=== PATIENT | female | born 1990 | race Caucasian/White ===

== ENCOUNTER 2018-10-31 01:33 | Emergency (ER) | payer MEDICAID ==
[2018-10-31] MEDS ORDERED: Acetaminophen/Butalbital/Caffeine 325-50-40 MG Tab PO ONE (02:50)
--- NOTE | 2018-10-31 02:53 | EDM.PDOC ---
ED HPI GENERAL MEDICAL PROBLEM - General Chief Complaint: Respiratory Problem Stated Complaint: SOB CONGESTION DUE TO ASTHMA Time Seen by Provider: 10/31/18 01:54 Source of Information: Reports: Patient, RN Notes Reviewed, Significant Other ( Boyfriend) History Limitations: Reports: No Limitations - History of Present Illness INITIAL COMMENTS - FREE TEXT/NARRATIVE: The patient states that she was in a swimming pool that seemed like it had too much chlorine, on 10/23/2018. She states that she has had URI symptoms , including nasal congestion, rhinorrhea, postnasal drip with a scratchy throat , since 10/23/2018. She states that she then moved here from [place], [place] 5 days ago. She states that she has been experiencing an asthma exacerbation, including shortness of breath, a cough sometimes productive of clear sputum, and slight wheezing, ever since she had been in the swimming pool. No recent fever. She has taken both DayQuil and NyQuil, without relief of her symptoms. She has not taken any other medications, including her albuterol, which she has by both MDI and nebulizer, because she forgot all of her medications in [place]. The patient has never been evaluated by a [facility], and has never undergone pulmonary function tests. She states that she was given a presumptive diagnosis of asthma at 18 years of age. The patient does not have a spacer chamber or peak flow meter. When asked to demonstrate how she would use her albuterol MDI, she shook her hand for only a few seconds, and her inhalation technique was poor. The patient acknowledges that she continues to smoke one pack of cigarettes per day, down from 2 packs of cigarettes per day, ever since she was 21 years old. The patient also reports that she gets headaches 3-4 times a week, and that she takes Fioricet up to 4 times a day for them. She states that she was diagnosed with migraines per a Neurologist around 2014, however, she states that she has never been on an antimigraine medication, such as a triptan, which she cannot explain. She is requesting a refill of her Fioricet. The patient's PCP was Isha Bailey NP, in [place]. Her Psychiatrist is Dr. Fish Winters, also from [place]. Headache Pain Score (Numeric/FACES): 8 - Related Data Allergies Allergy/AdvReac Type Severity Reaction Status Date / Time No Known Allergies Allergy Verified 10/31/18 01:44 Home Meds: Home Meds Acetaminophen/Butalbital/Caff [Fioricet 325-50-40 MG] 1 tab PO Q12H PRN #6 tablet 10/31/18 [Rx] Acetaminophen/Butalbital/Caff [Fioricet 325-50-40 MG] 1 tab PO Q12H PRN #6 tablet 10/31/18 [Rx] Albuterol Sulfate [Albuterol Sulfate Hfa] 1 - 2 inh IH Q4H PRN #1 hfa.aer.ad 07/20 [Rx] Albuterol Sulfate [Albuterol Sulfate Hfa] 1 - 2 inh INH Q4H PRN #1 hfa.aer.ad [Rx] Past Medical History 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: Reports: Asthma (suspected, not tested) Neurological History: Reports: Headaches, Chronic Psychiatric History: Reports: Anxiety (untreated), Bipolar (untreated), Depression (untreated) Endocrine/Metabolic History: Reports: Obesity/BMI 30+ - Past Surgical History HEENT Surgical History: Reports: Adenoidectomy, Oral Surgery (wisdom teeth extraction), Tonsillectomy Female Surgical History: Reports: D&C (x 1), Tubal Ligation Endocrine Surgical History: Reports: Thyroidectomy (partial) Social & Family History - Tobacco Use Smoking Status *Q: Current Every Day Smoker Years of Tobacco use: 7 Packs/Tins Daily: 1 Packs/Tins Daily Comment: Down from 2 ppd - Caffeine Use Caffeine Use: Reports: Energy Drinks, Soda - Alcohol Use Alcohol Use History: Yes Date/Time of Last Drink Comment: None since Mar 2018 - Recreational Drug Use Recreational Drug Use: No Recreational Drug Type: Reports: Marijuana/Hashish (last smoked May 2017), Methamphetamine (last smoked May 2017) - Living Situation & Occupation Living situation: Reports: , with Significant Other (Boyfriend), with Family (Daughter) Occupation: Unemployed ED ROS GENERAL - Review of Systems Review Of Systems: ROS reveals no pertinent complaints other than HPI. ED EXAM, GENERAL - Physical Exam Exam: See Below Exam Limited By: No Limitations General Appearance: Alert, WD/WN, No Apparent Distress Eye Exam: Bilateral Eye: EOMI, Normal Inspection Ears: Normal External Exam, Normal Canal, Hearing Grossly Normal, Normal TMs Nose: Normal Inspection, Other (Mild bilateral nasal mucosa edema) Throat/Mouth: Normal Inspection, Normal Lips, Normal Teeth, Normal Gums, Normal Voice, No Airway Compromise, Other (Posterior oropharyngeal streaking, consistent with post nasal drip) Head: Atraumatic, Normocephalic Neck: Normal Inspection, Supple, Non-Tender, Full Range of Motion. No: Lymphadenopathy (L), Lymphadenopathy (R) Respiratory/Chest: No Respiratory Distress, Lungs Clear, Normal Breath Sounds, No Accessory Muscle Use. No: Decreased Breath Sounds, Crackles, Rhonchi, Wheezing, Prolonged Expiration Cardiovascular: Normal Peripheral Pulses, Regular Rate, Rhythm, No Gallop, No JVD, No Murmur, No Rub Peripheral Pulses: 4+: Radial (L), Radial (R) GI/Abdominal: Normal Bowel Sounds, Soft, Non-Tender, No Organomegaly, No Distention, No Abnormal Bruit, No Mass, Other (Obese) (Female) Exam: Deferred Rectal (Female) Exam: Deferred Back Exam: Normal Inspection, Full Range of Motion, NT Extremities: Normal Inspection, Normal Range of Motion, No Pedal Edema, Normal Capillary Refill Neurological: Alert, Oriented, Normal Cognition, No Motor/Sensory Deficits Psychiatric: Normal Affect Skin Exam: Warm, Dry, Intact, Normal Color, No Rash Course - Vital Signs Last Recorded V/S: Last Vital Signs Temp 36.4 C 10/31/18 01:38 Pulse 102 H 10/31/18 01:38 Resp 16 10/31/18 01:38 BP 145/102 H 10/31/18 01:38 Pulse Ox 97 10/31/18 01:38 - Orders/Labs/Meds Meds: Medications Discontinued Medications Generic Name Dose Route Start Last Admin Trade Name Freq PRN Reason Stop Dose Admin Acetaminophen/Butalbital/Caffeine 1 tab 10/31/18 02:50 10/31/18 02:58 Fioricet 325-50-40 Mg PO 10/31/18 02:51 1 tab ONETIME ONE Administration - Re-Assessments/Exams Free Text/Narrative Re-Assessment/Exam: 10/31/18 02:48 While the patient may feel some shortness of breath, and she has an occasional cough, I hear no expiratory wheezing, there is good air movement, and no prolonged expiratory phase, therefore I don't believe what she is currently experiencing is an asthma exacerbation. I believe, rather, that her cough is due to a viral URI with postnasal drip. It is possible that she has allergic rhinitis, however, she denies that these symptoms occur seasonally. For today's purposes, then, I don't see an indication for any specific treatment, and I advised that she not take any [id number] cough or cold remedies, as they have been shown to be of no use. The patient is going to be provided, however, with a space chamber and a peak flow meter, with instructions on their proper use, and I will prescribe an albuterol MDI that she can fill later today. I am recommending that she follow-up in our clinic, where diagnostic PFTs can be arranged. With respect to the patient's headache, it does not sound like they are migrainous in etiology. She is likely suffering from chronic daily headaches, which may be related to her chronic use of Fioricet. For today's purposes, she will receive a single dose of Fioricet, and I will prescribe a small quantity, however, I would like her to follow-up in our clinic for further evaluation and any future prescriptions she might need. The patient is agreeable. Departure - Departure Time of Disposition: 02:53 Disposition: Home, Self-Care 01 Condition: Good Clinical Impression: Viral URI with cough, Chronic headaches - Discharge Information *PRESCRIPTION DRUG MONITORING PROGRAM REVIEWED*: Not Applicable *COPY OF PRESCRIPTION DRUG MONITORING REPORT IN PATIENT NIKIA: Not Applicable Prescriptions: Acetaminophen/Butalbital/Caff [Fioricet 325-50-40 MG] 1 tab PO Q12H PRN #6 tablet PRN Reason: Headache Acetaminophen/Butalbital/Caff [Fioricet 325-50-40 MG] 1 tab PO Q12H PRN #6 tablet PRN Reason: Headache Albuterol Sulfate [Albuterol Sulfate Hfa] 1 - 2 inh IH Q4H PRN #1 hfa.aer.ad PRN Reason: Wheezing Albuterol Sulfate [Albuterol Sulfate Hfa] 1 - 2 inh INH Q4H PRN #1 hfa.aer.ad PRN Reason: Wheezing Instructions: Migraine Headache, [id number], Upper Respiratory Infection, Adult, [id number] Referrals: Anali Redmond MD [Physician] - Forms: ED Department Discharge Additional Instructions: You were seen in the emergency room for shortness of breath and a cough, along with a headache. On evaluation in the ER, your shortness of breath and cough do not appear to be due to an asthma exacerbation. That does not mean that you don't have asthma, but at this time, your symptoms are more likely due to a viral URI (common cold ) with postnasal drip. As discussed, we do not recommend that you take any plgw-hdy-cdlqddh cough or cold remedies, as they have been shown to be of no benefit, but do have side effects, such as an upset stomach. You were provided a space chamber and a peak flow meter in the ER. You were prescribed an albuterol MDI and some Fioricet. Learn how to use the peak flow meter, and check your peak flow twice a week. If it is in the yellow or red zone, even if you are feeling fine, you should contact your doctor, as this may mean an impending asthma exacerbation. If you are having shortness of breath and wheezing, with or without a cough, and your peak flow is in the yellow or red zone, take 1-2 puffs of albuterol as needed. Always use the space chamber. You may repeat the albuterol as often as needed, however, if you need to use it more often than every 4 hours, you need to be seen by a doctor. If you are having shortness of breath and your peak flow is in the green zone, do not take albuterol. Follow-up with Dr. Anali Redmond, or one of the other providers in the clinic, in order to: 1. Establish a primary care provider. 2. Discuss the option of referral to a [facility] for pulmonary function tests, to definitively diagnose whether or not you have asthma, and craft an ideal treatment. 3. Discuss your chronic headaches. By history, they are not due to migraines. You may need to be reevaluated by a Neurologist. 4. Discuss whether or not you may benefit by restarting on antidepressant medication. If any other problems, please do not hesitate to return to the ER.
== END 2018-10-31 03:25 | disposition home or self-care (01) ==
LOC: JD.ED 01:33
DX: J06.9 Acute upper respiratory infection, unspecified (principal); R51 Headache; F41.9 Anxiety disorder, unspecified; F17.210 Nicotine dependence, cigarettes, uncomplicated; F31.9 Bipolar disorder, unspecified; Z79.899 Other long term (current) drug therapy
CPT/HCPCS: 99284; A9270

== ENCOUNTER 2019-02-13 20:14 | Emergency (ER) | payer MEDICAID ==
--- NOTE | 2019-02-13 20:57 | EDM.PDOC ---
ED HPI GENERAL MEDICAL PROBLEM - General Chief Complaint: Asthma Stated Complaint: COUGH SHORT OF BREATH Time Seen by Provider: 02/13/19 20:52 - History of Present Illness INITIAL COMMENTS - FREE TEXT/NARRATIVE: 28-year-old female presents emergency room with breathing difficulties. Patient' s long-standing history of asthma. This started about 3 or 4 days ago but today was much much worse. Patient uses albuterol at home and she's been using this every couple of hours. She is not aware of any fevers or chills she has not had any upper airway symptoms. No nausea no vomiting no gastrointestinal symptoms no other symptoms altogether. Treatments LIFE SPECIALIST: Reports: Other (see below) Other Treatments LIFE SPECIALIST: albuteral inhaler - Related Data Allergies Allergy/AdvReac Type Severity Reaction Status Date / Time No Known Allergies Allergy Verified 10/31/18 01:44 Home Meds: Home Meds Acetaminophen/Butalbital/Caff [Fioricet 325-50-40 MG] 1 tab PO Q12H PRN #6 tablet 10/31/18 [Rx] Albuterol Sulfate [Albuterol Sulfate Hfa] 1 - 2 inh INH Q4H PRN #1 hfa.aer.ad [Rx] ALPRAZolam [Xanax] 1 mg PO BID 02/13/19 [History] Fluticasone Propionate [Flovent] 1 puff IH BID #1 disk.w.dev 02/13/19 [Rx] Zolpidem Tartrate [Ambien] 5 mg PO BEDTIME 02/13/19 [History] predniSONE 60 mg PO WITHBREAKFAST #12 tab 02/13/19 [Rx] Past Medical History 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: Reports: Asthma Neurological History: Reports: Headaches, Chronic Psychiatric History: Reports: Anxiety, Bipolar, Depression Endocrine/Metabolic History: Reports: Obesity/BMI 30+ - Past Surgical History HEENT Surgical History: Reports: Adenoidectomy, Oral Surgery, Tonsillectomy Female Surgical History: Reports: D&C, Tubal Ligation Endocrine Surgical History: Reports: Thyroidectomy Social & Family History - Tobacco Use Smoking Status *Q: Current Every Day Smoker Years of Tobacco use: 6 Packs/Tins Daily: 1 - Caffeine Use Caffeine Use: Reports: Soda - Recreational Drug Use Recreational Drug Use: No - Living Situation & Occupation Living situation: Reports: , with Significant Other (Boyfriend), with Family (Daughter) Occupation: Unemployed ED ROS GENERAL - Review of Systems Review Of Systems: See Below Constitutional: Reports: No Symptoms HEENT: Reports: No Symptoms Respiratory: Reports: Wheezing, Cough. Denies: Pleuritic Chest Pain, Sputum, Hemoptysis Cardiovascular: Reports: No Symptoms Endocrine: Reports: No Symptoms GI/Abdominal: Reports: No Symptoms : Reports: No Symptoms Musculoskeletal: Reports: No Symptoms Skin: Reports: No Symptoms Neurological: Reports: No Symptoms Psychiatric: Reports: No Symptoms Hematologic/Lymphatic: Reports: No Symptoms Immunologic: Reports: No Symptoms ED EXAM, GENERAL - Physical Exam Exam: See Below Exam Limited By: No Limitations General Appearance: Alert, No Apparent Distress Eye Exam: Bilateral Eye: Normal Inspection Ears: Normal External Exam Nose: Normal Inspection, Normal Mucosa, No Blood Throat/Mouth: Normal Inspection, Normal Lips, Normal Teeth, Normal Gums, Normal Oropharynx, Normal Voice, No Airway Compromise Head: Atraumatic, Normocephalic Neck: Normal Inspection, Supple, Non-Tender, Full Range of Motion Respiratory/Chest: No Respiratory Distress, Decreased Breath Sounds, Other (She has some coarse breath sounds a few end expiratory wheezes she sounds really clear after nebulizer treatment) Cardiovascular: Normal Peripheral Pulses, Regular Rate, Rhythm, No Edema Course - Vital Signs Last Recorded V/S: Last Vital Signs Temp 36.9 C 02/13/19 20:37 Pulse 100 02/13/19 20:37 Resp 20 02/13/19 20:37 BP 126/90 02/13/19 20:37 Pulse Ox 96 02/13/19 21:18 - Orders/Labs/Meds Orders: Active Orders 24 hr Category Date Time Status RT Aerosol Therapy [RC] ASDIRECTED Care 02/13/19 21:09 Active Chest 2V [CR] Stat Exams 02/13/19 21:03 Taken Meds: Medications Discontinued Medications Generic Name Dose Route Start Last Admin Trade Name Freq PRN Reason Stop Dose Admin Albuterol/Ipratropium 3 ml 02/13/19 21:09 02/13/19 21:18 Duoneb 3.0-0.5 Mg/3 Ml NEB 02/13/19 21:10 3 ml ONETIME ONE Administration Prednisone 60 mg 02/13/19 21:03 02/13/19 21:29 Prednisone PO 02/13/19 21:04 60 mg ONETIME ONE Administration - Re-Assessments/Exams Free Text/Narrative Re-Assessment/Exam: 02/13/19 22:33 Chest x-ray looks unremarkable she had a big improvement with her nebulizer treatment. She's received 60 mg of prednisone and she really wants to go home we will discharge her home Departure - Departure Time of Disposition: 22:34 Disposition: Home, Self-Care 01 Clinical Impression: History of asthma, Acute bronchitis - Discharge Information Prescriptions: Fluticasone Propionate [Flovent] 1 puff IH BID #1 disk.w.dev predniSONE 60 mg PO WITHBREAKFAST #12 tab Referrals: Neva Chapman PA-C [Primary Care Provider] - Forms: ED Department Discharge - My Orders Last 24 Hours: My Active Orders 02/13/19 21:03 Chest 2V [CR] Stat 02/13/19 21:09 RT Aerosol Therapy [RC] ASDIRECTED - Assessment/Plan Last 24 Hours: My Active Orders 02/13/19 21:03 Chest 2V [CR] Stat 02/13/19 21:09 RT Aerosol Therapy [RC] ASDIRECTED
[2019-02-13] MEDS ORDERED: predniSONE 10 MG Tab PO ONE (21:03)
[2019-02-13] MEDS ORDERED: Albuterol/Ipratropium 3.0-0.5 MG/3 ML Neb Soln NEB ONE (21:09)
--- NOTE | 2019-02-15 09:42 | CR ---
Chest: Two views of the chest were obtained. Comparison: No prior chest x-ray. Heart size and mediastinum are normal. Lungs are clear. Bony structures are unremarkable. Impression: 1. Nothing acute is seen on two-view chest x-ray. Diagnostic code #1
== END 2019-02-13 22:55 | disposition home or self-care (01) ==
LOC: JD.ED 20:14 → SUPCPDRO 20:14 → JD.ED 22:55
DX: J20.9 Acute bronchitis, unspecified (principal); J45.909 Unspecified asthma, uncomplicated; F41.9 Anxiety disorder, unspecified; F32.9 Major depressive disorder, single episode, unspecified; F17.210 Nicotine dependence, cigarettes, uncomplicated; Z79.899 Other long term (current) drug therapy
CPT/HCPCS: 71046; 94640; 99283; A9270; J7620-GY

== ENCOUNTER 2019-04-11 19:17 | Emergency (ER) | payer MEDICAID ==
[2019-04-11] MEDS ORDERED: Morphine 2 MG/ML Syringe IVPUSH ONE (19:41)
[2019-04-11] MEDS ORDERED: Sodium Chloride 0.9% 10 ML Syringe FLUSH PRN (19:41)
[2019-04-11] MEDS ORDERED: Ondansetron 4 MG/2 ML SDV IVPUSH ONE (19:41)
--- NOTE | 2019-04-11 19:45 | EDM.PDOC ---
ED HPI GENERAL MEDICAL PROBLEM - General Chief Complaint: Chest Pain Stated Complaint: LEFT SIDE CHEST PAIN Time Seen by Provider: 04/11/19 19:36 - History of Present Illness INITIAL COMMENTS - FREE TEXT/NARRATIVE: Patient is an unfortunate 28-year-old morbidly obese female who presents to emergency Department today with complaint of abdominal pain. Patient reports she was in her normal state of health until proximally 5:30 AM this morning when she started having epigastric and right upper quadrant abdominal pain that radiated to her left chest. Patient reports that these symptoms have progressed throughout the day so she came to the emergency department for evaluation. Patient reports that she has achy crampy type pain nothing makes the pain worse nothing makes the pain better. No nausea no vomiting no dysuria no frequency no urgency no vaginal discharge no foul odor no hematochezia and no melena no hematemesis Left Chest Pain Score (Numeric/FACES): 8 - Related Data Allergies Allergy/AdvReac Type Severity Reaction Status Date / Time No Known Allergies Allergy Verified 04/11/19 19:31 Home Meds: Home Meds Albuterol Sulfate [Albuterol Sulfate Hfa] 1 - 2 inh INH Q4H PRN #1 [id number] [Rx] ALPRAZolam [Xanax] 1 mg PO BID 02/13/19 [History] Fluticasone Propionate [Flovent] 1 puff IH BID #1 disk.w.dev 02/13/19 [Rx] Zolpidem Tartrate [Ambien] 5 mg PO BEDTIME 02/13/19 [History] Past Medical History 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: Reports: Asthma Neurological History: Reports: Headaches, Chronic Psychiatric History: Reports: Anxiety, Bipolar, Depression Endocrine/Metabolic History: Reports: Obesity/BMI 30+ - Past Surgical History HEENT Surgical History: Reports: Adenoidectomy, Oral Surgery, Tonsillectomy Female Surgical History: Reports: D&C, Tubal Ligation Endocrine Surgical History: Reports: Thyroidectomy Social & Family History - Family History Family Medical History: Noncontributory - Tobacco Use Smoking Status *Q: Current Every Day Smoker Years of Tobacco use: 10 Packs/Tins Daily: 1 - Caffeine Use Caffeine Use: Reports: None - Recreational Drug Use Recreational Drug Use: No - Living Situation & Occupation Living situation: Reports: , with Significant Other (Boyfriend), with Family (Daughter) Occupation: Unemployed ED ROS GENERAL - Review of Systems Review Of Systems: See Below Constitutional: Reports: No Symptoms HEENT: Reports: No Symptoms Respiratory: Denies: Shortness of Breath Cardiovascular: Reports: Chest Pain. Denies: Blood Pressure Problem Endocrine: Reports: No Symptoms GI/Abdominal: Reports: Abdominal Pain. Denies: Black Stool, Bloody Stool, Diarrhea, Distension : Reports: No Symptoms Musculoskeletal: Reports: No Symptoms Skin: Reports: No Symptoms Neurological: Reports: No Symptoms Psychiatric: Reports: No Symptoms Hematologic/Lymphatic: Reports: No Symptoms Immunologic: Reports: No Symptoms ED EXAM, GI/ABD - Physical Exam Exam: See Below Exam Limited By: No Limitations General Appearance: Alert, WD/WN, Mild Distress. No: Anxious Throat/Mouth: Normal Inspection, Normal Lips, Normal Teeth, Normal Gums, Normal Oropharynx, Normal Voice, No Airway Compromise Head: Atraumatic, Normocephalic Neck: Normal Inspection, Supple, Non-Tender, Full Range of Motion Respiratory/Chest: No Respiratory Distress, Lungs Clear, Normal Breath Sounds, No Accessory Muscle Use, Chest Non-Tender Cardiovascular: Normal Peripheral Pulses, Regular Rate, Rhythm, No Edema, No Gallop, No JVD, No Murmur, No Rub, Other (Mild tenderness left terminal border 3 -4 intercostal space) GI/Abdominal Exam: Normal Bowel Sounds, Soft, Tender (Moderate tenderness epigastric right upper quadrant positive Sue sign) Back Exam: Normal Inspection, Full Range of Motion, NT Extremities: Normal Inspection, Normal Range of Motion, Non-Tender, Normal Capillary Refill, No Pedal Edema Neurological: Alert, Oriented, CN II-XII Intact, Normal Cognition, Normal Gait, Normal Reflexes, No Motor/Sensory Deficits Skin Exam: Warm, Dry, Intact, Normal Color, No Rash Lymphatic: No Adenopathy Course - Vital Signs Last Recorded V/S: Last Vital Signs Temp 98.1 F 04/11/19 19:26 Pulse 104 H 04/11/19 19:26 Resp 14 04/11/19 19:26 BP 133/82 04/11/19 19:26 Pulse Ox 99 04/11/19 19:26 - Orders/Labs/Meds Orders: Active Orders 24 hr Category Date Time Status Gallbladder [Abdomen Ltd] [US] Stat Exams 04/11/19 21:10 Taken Sodium Chloride 0.9% [Saline Flush] Med 04/11/19 19:41 Active 10 ml FLUSH ASDIRECTED PRN Saline Lock Insert [OM.PC] Stat Oth 04/11/19 19:41 Ordered Medication Orders Sodium Chloride (Saline Flush) 10 ml FLUSH ASDIRECTED PRN PRN Reason: Keep Vein Open Last Admin: 04/11/19 20:04 Dose: 10 ml Labs: Laboratory Tests 04/11/19 04/11/19 04/11/19 Range/Units 19:55 19:55 19:55 WBC 12.42 H (3.98-10.04) K/mm3 RBC 4.91 (3.98-5.22) M/mm3 Hgb 14.2 (11.2-15.7) gm/dl Hct 42.1 (34.1-44.9) % MCV 85.7 (79.4-94.8) fl MCH 28.9 (25.6-32.2) pg MCHC 33.7 (32.2-35.5) g/dl RDW Std Deviation 41.2 (36.4-46.3) fL Plt Count 275 (182-369) K/mm3 MPV 9.5 (9.4-12.3) fl Neut % (Auto) 67.2 (34.0-71.1) % Lymph % (Auto) 23.3 (19.3-51.7) % [place] % (Auto) 5.9 (4.7-12.5) % Eos % (Auto) 2.8 (0.7-5.8) Baso % (Auto) 0.2 (0.1-1.2) % Neut # (Auto) 8.34 H (1.56-6.13) K/mm3 Lymph # (Auto) 2.89 (1.18-3.74) K/mm3 [place] # (Auto) 0.73 H (0.24-0.36) K/mm3 Eos # (Auto) 0.35 (0.04-0.36) K/mm3 Baso # (Auto) 0.03 (0.01-0.08) K/mm3 Manual Slide Review Normal smear Sodium 141 (136-145) mEq/L Potassium 4.2 (3.5-5.1) mEq/L Chloride 106 (98-107) mEq/L Carbon Dioxide 26 (21-32) mEq/L Anion Gap 13.2 (5-15) BUN 9 (7-18) mg/dL Creatinine 0.7 (0.55-1.02) mg/dL Est Cr Clr Drug Dosing 122.85 mL/min Estimated GFR (MDRD) > 60 (>60) mL/min BUN/Creatinine Ratio 12.9 L (14-18) Glucose 204 H (74-106) mg/dL Calcium 9.5 (8.5-10.1) mg/dL Total Bilirubin 0.3 (0.2-1.0) mg/dL AST 55 H (15-37) U/L ALT 105 H (14-59) U/L Alkaline Phosphatase 89 (46-116) U/L Total Protein 7.7 (6.4-8.2) g/dl Albumin 3.4 (3.4-5.0) g/dl Globulin 4.3 gm/dL Albumin/Globulin Ratio 0.8 L (1-2) Lipase 74 (73-393) U/L HCG, Qual Negative (NEGATIVE) Urine Color (Yellow) Urine Appearance (Clear) Urine pH (5.0-8.0) Ur Specific [place] (1.005-1.030) Urine Protein (Negative) Urine Glucose (UA) (Negative) Urine Ketones (Negative) Urine Occult Blood (Negative) Urine Nitrite (Negative) Urine Bilirubin (Negative) Urine Urobilinogen (0.2-1.0) Ur Leukocyte Esterase (Negative) Urine RBC (0-5) /hpf Urine WBC (0-5) /hpf Ur Squamous Epith Cells (0-5) /hpf Urine Bacteria (FEW) /hpf Urine Mucus (FEW) /hpf 04/11/19 Range/Units 20:00 WBC (3.98-10.04) K/mm3 RBC (3.98-5.22) M/mm3 Hgb (11.2-15.7) gm/dl Hct (34.1-44.9) % MCV (79.4-94.8) fl MCH (25.6-32.2) pg MCHC (32.2-35.5) g/dl RDW Std Deviation (36.4-46.3) fL Plt Count (182-369) K/mm3 MPV (9.4-12.3) fl Neut % (Auto) (34.0-71.1) % Lymph % (Auto) (19.3-51.7) % [place] % (Auto) (4.7-12.5) % Eos % (Auto) (0.7-5.8) Baso % (Auto) (0.1-1.2) % Neut # (Auto) (1.56-6.13) K/mm3 Lymph # (Auto) (1.18-3.74) K/mm3 [place] # (Auto) (0.24-0.36) K/mm3 Eos # (Auto) (0.04-0.36) K/mm3 Baso # (Auto) (0.01-0.08) K/mm3 Manual Slide Review Sodium (136-145) mEq/L Potassium (3.5-5.1) mEq/L Chloride (98-107) mEq/L Carbon Dioxide (21-32) mEq/L Anion Gap (5-15) BUN (7-18) mg/dL Creatinine (0.55-1.02) mg/dL Est Cr Clr Drug Dosing mL/min Estimated GFR (MDRD) (>60) mL/min BUN/Creatinine Ratio (14-18) Glucose (74-106) mg/dL Calcium (8.5-10.1) mg/dL Total Bilirubin (0.2-1.0) mg/dL AST (15-37) U/L ALT (14-59) U/L Alkaline Phosphatase (46-116) U/L Total Protein (6.4-8.2) g/dl Albumin (3.4-5.0) g/dl Globulin gm/dL Albumin/Globulin Ratio (1-2) Lipase (73-393) U/L HCG, Qual (NEGATIVE) Urine Color Yellow (Yellow) Urine Appearance Slt cloudy H (Clear) Urine pH 6.0 (5.0-8.0) Ur Specific [place] > or = 1.030 (1.005-1.030) Urine Protein Negative (Negative) Urine Glucose (UA) Trace H (Negative) Urine Ketones Negative (Negative) Urine Occult Blood Trace-intact H (Negative) Urine Nitrite Negative (Negative) Urine Bilirubin Negative (Negative) Urine Urobilinogen 0.2 (0.2-1.0) Ur Leukocyte Esterase Negative (Negative) Urine RBC 0-5 (0-5) /hpf Urine WBC 5-10 H (0-5) /hpf Ur Squamous Epith Cells 10-20 H (0-5) /hpf Urine Bacteria Moderate H (FEW) /hpf Urine Mucus Moderate H (FEW) /hpf Meds: Medications Generic Name Dose Route Start Last Admin Trade Name Freq PRN Reason Stop Dose Admin Sodium Chloride 10 ml 04/11/19 19:41 04/11/19 20:04 Saline Flush FLUSH 10 ml ASDIRECTED PRN Administration Keep Vein Open Discontinued Medications Generic Name Dose Route Start Last Admin Trade Name Freq PRN Reason Stop Dose Admin Morphine Sulfate 2 mg 04/11/19 19:41 04/11/19 20:02 Morphine IVPUSH 04/11/19 19:42 2 mg ONETIME ONE Administration Ondansetron HCl 4 mg 04/11/19 19:41 04/11/19 20:00 Zofran IVPUSH 04/11/19 19:42 4 mg ONETIME ONE Administration - Radiology Interpretation Free Text/Narrative:: Color sonogram shows "impression: Fatty liver. Common bile duct upper limits of normal in diameter." Departure - Departure Time of Disposition: 22:13 Disposition: Home, Self-Care 01 Clinical Impression: GERD without esophagitis, Fatty liver - Discharge Information *PRESCRIPTION DRUG MONITORING PROGRAM REVIEWED*: No *COPY OF PRESCRIPTION DRUG MONITORING REPORT IN PATIENT NIKIA: No Instructions: Indigestion, [id number] Referrals: Neva Chapman PA-C [Primary Care Provider] - Forms: ED Department Discharge Additional Instructions: Home, rest, Zantac daily, Tums as needed for pain, follow-up with your PCP next week, return as needed for worsening condition - My Orders Last 24 Hours: My Active Orders 04/11/19 19:41 Sodium Chloride 0.9% [Saline Flush] 10 ml FLUSH ASDIRECTED PRN Saline Lock Insert [OM.PC] Stat 04/11/19 21:10 Gallbladder [Abdomen Ltd] [US] Stat - Assessment/Plan Last 24 Hours: My Active Orders 04/11/19 19:41 Sodium Chloride 0.9% [Saline Flush] 10 ml FLUSH ASDIRECTED PRN Saline Lock Insert [OM.PC] Stat 04/11/19 21:10 Gallbladder [Abdomen Ltd] [US] Stat
--- NOTE | 2019-04-12 07:45 | US ---
Limited abdominal ultrasound: Multiple real-time images of the upper right abdomen were obtained. Comparison: No prior abdominal imaging. Technologist's note: Difficult due to body habitus and bowel gas Liver is diffusely echogenic. No focal abnormality is appreciated. No shadowing gallstones are seen. No gallbladder wall thickening or biliary duct dilatation is seen. Right kidney shows no hydronephrosis or mass. Right kidney has a length of 12.9 cm. Pancreas is incompletely seen due to bowel gas. Visualized portion shows no discrete abnormality. Portal vein shows normal hepatopedal flow. Impression: 1. Probable fatty infiltration within the liver. 2. No additional abnormality is definitely appreciated on right upper quadrant abdominal ultrasound. Diagnostic code #2 I agree with preliminary report from [facility], finalized on 04/11/19, 11:06 PM Central Time
== END 2019-04-11 22:24 | disposition home or self-care (01) ==
LOC: JD.ED 19:17
DX: K21.9 Gastro-esophageal reflux disease without esophagitis (principal); K76.0 Fatty (change of) liver, not elsewhere classified; J45.909 Unspecified asthma, uncomplicated; F41.9 Anxiety disorder, unspecified; F32.9 Major depressive disorder, single episode, unspecified; E66.9 Obesity, unspecified; Z68.45 Body mass index [BMI] 70 or greater, adult; F17.210 Nicotine dependence, cigarettes, uncomplicated; Z79.899 Other long term (current) drug therapy
CPT/HCPCS: 36415; 76705; 80053; 81001; 83690; 84703; 85025; 96374; 96375; 99284; J2270; J2405

== ENCOUNTER 2019-05-09 20:00 | Emergency (ER) | payer MEDICAID ==
--- NOTE | 2019-05-09 20:54 | EDM.PDOC ---
ED HPI GENERAL MEDICAL PROBLEM - General Chief Complaint: Chest Pain Stated Complaint: CHEST PAINS Time Seen by Provider: 05/09/19 20:15 Source of Information: Reports: Patient, RN Notes Reviewed - History of Present Illness INITIAL COMMENTS - FREE TEXT/NARRATIVE: 28 yr old female has had L sided chest pain off and on for about 2 days. Describes an ache L upper chest without radiation. Hx type II diabetes, obesity. Metformin 500 mg daily prescribed about 1 week ago. Has also had mild cough, occasional sore throat, chills the last 2 days. No hx Htn or known cardiac problems. A daughter has also been ill with cough, arslan. this past week. Left Chest Pain Score (Numeric/FACES): 6 - Related Data Allergies Allergy/AdvReac Type Severity Reaction Status Date / Time No Known Allergies Allergy Verified 05/09/19 20:17 Home Meds: Home Meds ALPRAZolam [Xanax] 1 mg PO BID PRN 02/13/19 [History] Zolpidem Tartrate [Ambien] 5 mg PO BEDTIME 02/13/19 [History] metFORMIN [Glucophage XR] 500 mg PO DAILY 05/09/19 [History] Past Medical History 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: Reports: Asthma Neurological History: Reports: Headaches, Chronic Psychiatric History: Reports: Anxiety, Bipolar, Depression Endocrine/Metabolic History: Reports: Diabetes, Type II, Obesity/BMI 30+ - Past Surgical History HEENT Surgical History: Reports: Adenoidectomy, Oral Surgery, Tonsillectomy Female Surgical History: Reports: D&C, Tubal Ligation Endocrine Surgical History: Reports: Thyroidectomy Social & Family History - Family History Family Medical History: Noncontributory - Tobacco Use Smoking Status *Q: Current Every Day Smoker Years of Tobacco use: 6 Packs/Tins Daily: 0.5 - Caffeine Use Caffeine Use: Reports: Coffee - Living Situation & Occupation Living situation: Reports: , with Significant Other (Boyfriend), with Family (Daughter) Occupation: Unemployed ED ROS GENERAL - Review of Systems Review Of Systems: See Below Constitutional: Reports: Chills. Denies: Fever HEENT: Reports: Sinus Problem (mild nasal arslan. ), Throat Pain Respiratory: Denies: Shortness of Breath, Wheezing, Pleuritic Chest Pain Cardiovascular: Reports: Chest Pain GI/Abdominal: Reports: Nausea, Vomiting (times 1 yesterday). Denies: Abdominal Pain Musculoskeletal: Denies: Neck Pain, Shoulder Pain, Arm Pain, Back Pain Skin: Reports: No Symptoms Neurological: Reports: Numbness (bilat feet) ED EXAM, GENERAL - Physical Exam Exam: See Below General Appearance: Alert, No Apparent Distress Eye Exam: Bilateral Eye: PERRL Throat/Mouth: Normal Inspection, Normal Oropharynx Head: Atraumatic Neck: Supple Respiratory/Chest: No Respiratory Distress, Lungs Clear, Normal Breath Sounds, Chest Non-Tender Cardiovascular: Regular Rate, Rhythm GI/Abdominal: Soft, Non-Tender Extremities: Normal Inspection. No: Leg Pain, Increased Warmth, Redness Neurological: Alert, Oriented, No Motor/Sensory Deficits Skin Exam: Warm, Dry, Normal Color, No Rash EKG INTERPRETATION EKG Date: 05/09/19 Rhythm: NSR [place]: Normal P-Wave: Present QRS: Normal ST-T: Normal QT: Normal Course - Vital Signs Last Recorded V/S: Last Vital Signs Temp 98.3 F 05/09/19 20:13 Pulse 88 05/09/19 20:13 Resp 20 05/09/19 20:13 BP 157/93 H 05/09/19 20:13 Pulse Ox 100 05/09/19 20:13 - Orders/Labs/Meds Orders: Active Orders 24 hr Category Date Time Status EKG 12 Lead [EKG Documentation Completion] [RC] STAT Care 05/09/19 20:43 Active POC Glucose [Blood Glucose Check, Bedside] [RC] ONETIME Care 05/09/19 20:44 Active Chest 1V Frontal [CR] Stat Exams 05/09/19 20:44 Taken Labs: Laboratory Tests 05/09/19 Range/Units 21:05 POC Glucose 192 H (70-105) mg/dL - Re-Assessments/Exams Free Text/Narrative Re-Assessment/Exam: 05/09/19 22:41 CXR, EKG, has been in NSR, no ectopy. Discharge instr. as documented. Departure - Departure Time of Disposition: 22:31 Disposition: Home, Self-Care 01 Condition: Fair Clinical Impression: Viral syndrome, Atypical chest pain Instructions: Viral Respiratory Infection, H[place]-Er-Slre, Nonspecific Chest Pain , [id number] Referrals: Chirag Freitas PA-C [Primary Care Provider] - Forms: ED Department Discharge Additional Instructions: Alternate ice and heat to area of discomfort as needed, tylenol or excedrin up to 3 times daily as needed. Low calorie low carb diet, try avoid flour and sugar foods as best you can, try avoid fried foods as best you can. Follow up clinic as needed. Dietary consult as planned, return to ED as needed if symptoms worsening in any way. - My Orders Last 24 Hours: My Active Orders 05/09/19 20:43 EKG 12 Lead [EKG Documentation Completion] [RC] STAT 05/09/19 20:44 POC Glucose [Blood Glucose Check, Bedside] [RC] ONETIME Chest 1V Frontal [CR] Stat - Assessment/Plan Last 24 Hours: My Active Orders 05/09/19 20:43 EKG 12 Lead [EKG Documentation Completion] [RC] STAT 05/09/19 20:44 POC Glucose [Blood Glucose Check, Bedside] [RC] ONETIME Chest 1V Frontal [CR] Stat
--- NOTE | 2019-05-10 08:57 | CR ---
Chest: Frontal view of the chest was obtained. Comparison: Prior chest x-ray of 02/13/19. Heart size and mediastinum are normal. Lungs are clear. Bony structures are unremarkable. Impression: 1. Nothing acute is seen on frontal chest x-ray. Diagnostic code #1 This report was dictated in [place] Standard Time
== END 2019-05-09 22:45 | disposition home or self-care (01) ==
LOC: JD.ED 20:00
DX: R07.89 Other chest pain (principal); B34.9 Viral infection, unspecified; E11.9 Type 2 diabetes mellitus without complications; J45.909 Unspecified asthma, uncomplicated; F41.9 Anxiety disorder, unspecified; F17.210 Nicotine dependence, cigarettes, uncomplicated; E66.9 Obesity, unspecified; Z68.42 Body mass index [BMI] 45.0-49.9, adult; Z79.84 Long term (current) use of oral hypoglycemic drugs
CPT/HCPCS: 71045; 71045-26; 82962; 93005; 93010; 99283; 99285-25

== ENCOUNTER 2019-06-12 18:28 | Emergency (ER) | payer MEDICAID ==
[2019-06-12] MEDS ORDERED: Ondansetron 4 MG/2 ML SDV IVPUSH ONE (21:46)
[2019-06-12] MEDS ORDERED: Sodium Chloride 0.9% 10 ML Syringe FLUSH PRN (22:40)
[2019-06-12] MEDS ORDERED: Iopamidol 612 MG/ML 100 ML Bottle IVPUSH ONE (22:40)
[2019-06-12] MEDS ORDERED: Diatrizoate Meglumine/Diatrizoate Sodium 37% 120 ML Bottle PO ONE (22:40)
--- NOTE | 2019-06-13 00:05 | EDM.PDOC ---
ED HPI GENERAL MEDICAL PROBLEM - General Chief Complaint: Abdominal Pain Stated Complaint: sharp side pain Time Seen by Provider: 06/12/19 19:52 Source of Information: Reports: Patient, RN Notes Reviewed - History of Present Illness INITIAL COMMENTS - FREE TEXT/NARRATIVE: 28 year old female with R lower abd and flank pain for about the past 4 days. No vomiting or diarrhea. No voiding sx. Pain at times is sharp and shooting. No fever or chills. Hx of prior tubal ligation. Right Lower Abdomen Pain Score (Numeric/FACES): 7 - Related Data Allergies Allergy/AdvReac Type Severity Reaction Status Date / Time No Known Allergies Allergy Verified 06/12/19 19:19 Home Meds: Home Meds ALPRAZolam [Xanax] 1 mg PO BID PRN 02/13/19 [History] Zolpidem Tartrate [Ambien] 5 mg PO BEDTIME 02/13/19 [History] metFORMIN [Glucophage XR] 500 mg PO DAILY 05/09/19 [History] Past Medical History 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: Reports: Asthma Neurological History: Reports: Headaches, Chronic Psychiatric History: Reports: Anxiety, Bipolar, Depression Endocrine/Metabolic History: Reports: Diabetes, Type II, Obesity/BMI 30+ - Past Surgical History HEENT Surgical History: Reports: Adenoidectomy, Oral Surgery, Tonsillectomy Female Surgical History: Reports: D&C, Tubal Ligation Endocrine Surgical History: Reports: Thyroidectomy Social & Family History - Family History Family Medical History: Noncontributory - Tobacco Use Smoking Status *Q: Current Every Day Smoker Years of Tobacco use: 7 Packs/Tins Daily: 1 - Caffeine Use Caffeine Use: Reports: Coffee - Recreational Drug Use Recreational Drug Use: No - Living Situation & Occupation Living situation: Reports: , with Significant Other (Boyfriend), with Family (Daughter) Occupation: Unemployed ED ROS GENERAL - Review of Systems Review Of Systems: See Below Constitutional: Denies: Fever, Chills HEENT: Reports: No Symptoms Respiratory: Denies: Shortness of Breath Cardiovascular: Denies: Chest Pain GI/Abdominal: Reports: Abdominal Pain, Decreased Appetite (mildly decreased appetite). Denies: Diarrhea, Nausea, Vomiting Musculoskeletal: Reports: No Symptoms Skin: Reports: No Symptoms Neurological: Reports: No Symptoms ED EXAM, GI/ABD - Physical Exam Exam: See Below General Appearance: Alert, No Apparent Distress Eyes: Bilateral: Normal Appearance Throat/Mouth: Normal Inspection, Normal Oropharynx Head: Atraumatic Neck: Supple Respiratory/Chest: No Respiratory Distress, Lungs Clear, Normal Breath Sounds Cardiovascular: Regular Rate, Rhythm GI/Abdominal Exam: Soft, Tender (mild tenderness RLQ). No: Guarding, Rebound Back Exam: No: CVA Tenderness (L), CVA Tenderness (R) Extremities: Normal Inspection, Normal Range of Motion Neurological: Alert, Oriented, No Motor/Sensory Deficits Skin Exam: Warm, Dry, Normal Color Course - Vital Signs Last Recorded V/S: Last Vital Signs Temp 96.5 F 06/12/19 19:16 Pulse 87 06/12/19 19:16 Resp 20 06/12/19 19:16 BP 125/82 06/12/19 19:16 Pulse Ox 100 06/12/19 19:16 - Orders/Labs/Meds Labs: Laboratory Tests 06/12/19 06/12/19 06/12/19 Range/Units 19:55 19:55 20:00 WBC 11.62 H (3.98-10.04) K/mm3 RBC 4.97 (3.98-5.22) M/mm3 Hgb 14.5 (11.2-15.7) gm/dl Hct 43.0 (34.1-44.9) % MCV 86.5 (79.4-94.8) fl MCH 29.2 (25.6-32.2) pg MCHC 33.7 (32.2-35.5) g/dl RDW Std Deviation 40.8 (36.4-46.3) fL Plt Count 285 (182-369) K/mm3 MPV 9.8 (9.4-12.3) fl Neut % (Auto) 60.4 (34.0-71.1) % Lymph % (Auto) 29.3 (19.3-51.7) % [place] % (Auto) 6.2 (4.7-12.5) % Eos % (Auto) 3.1 (0.7-5.8) Baso % (Auto) 0.3 (0.1-1.2) % Neut # (Auto) 7.01 H (1.56-6.13) K/mm3 Lymph # (Auto) 3.41 (1.18-3.74) K/mm3 [place] # (Auto) 0.72 H (0.24-0.36) K/mm3 Eos # (Auto) 0.36 (0.04-0.36) K/mm3 Baso # (Auto) 0.04 (0.01-0.08) K/mm3 Sodium (136-145) mEq/L Potassium (3.5-5.1) mEq/L Chloride (98-107) mEq/L Carbon Dioxide (21-32) mEq/L Anion Gap (5-15) BUN (7-18) mg/dL Creatinine (0.55-1.02) mg/dL Est Cr Clr Drug Dosing mL/min Estimated GFR (MDRD) (>60) mL/min BUN/Creatinine Ratio (14-18) Glucose (74-106) mg/dL Calcium (8.5-10.1) mg/dL Total Bilirubin (0.2-1.0) mg/dL AST (15-37) U/L ALT (14-59) U/L Alkaline Phosphatase (46-116) U/L C-Reactive Protein (<1.0) mg/dL Total Protein (6.4-8.2) g/dl Albumin (3.4-5.0) g/dl Globulin gm/dL Albumin/Globulin Ratio (1-2) Urine Color Yellow (Yellow) Urine Appearance Clear (Clear) Urine pH 6.0 (5.0-8.0) Ur Specific [place] > or = 1.030 (1.005-1.030) Urine Protein Negative (Negative) Urine Glucose (UA) Negative (Negative) Urine Ketones Negative (Negative) Urine Occult Blood Negative (Negative) Urine Nitrite Negative (Negative) Urine Bilirubin Negative (Negative) Urine Urobilinogen 0.2 (0.2-1.0) Ur Leukocyte Esterase Negative (Negative) Urine RBC 0-5 (0-5) /hpf Urine WBC 0-5 (0-5) /hpf Ur Epithelial Cells 0-5 (0-5) /hpf Urine Bacteria Few (FEW) /hpf Urine Mucus Few (FEW) /hpf Urine HCG, Qual Negative (NEGATIVE) 06/12/19 Range/Units 20:00 WBC (3.98-10.04) K/mm3 RBC (3.98-5.22) M/mm3 Hgb (11.2-15.7) gm/dl Hct (34.1-44.9) % MCV (79.4-94.8) fl MCH (25.6-32.2) pg MCHC (32.2-35.5) g/dl RDW Std Deviation (36.4-46.3) fL Plt Count (182-369) K/mm3 MPV (9.4-12.3) fl Neut % (Auto) (34.0-71.1) % Lymph % (Auto) (19.3-51.7) % [place] % (Auto) (4.7-12.5) % Eos % (Auto) (0.7-5.8) Baso % (Auto) (0.1-1.2) % Neut # (Auto) (1.56-6.13) K/mm3 Lymph # (Auto) (1.18-3.74) K/mm3 [place] # (Auto) (0.24-0.36) K/mm3 Eos # (Auto) (0.04-0.36) K/mm3 Baso # (Auto) (0.01-0.08) K/mm3 Sodium 140 (136-145) mEq/L Potassium 3.9 (3.5-5.1) mEq/L Chloride 104 (98-107) mEq/L Carbon Dioxide 26 (21-32) mEq/L Anion Gap 13.9 (5-15) BUN 14 (7-18) mg/dL Creatinine 0.8 (0.55-1.02) mg/dL Est Cr Clr Drug Dosing 111.37 mL/min Estimated GFR (MDRD) > 60 (>60) mL/min BUN/Creatinine Ratio 17.5 (14-18) Glucose 156 H (74-106) mg/dL Calcium 9.1 (8.5-10.1) mg/dL Total Bilirubin 0.4 (0.2-1.0) mg/dL AST 68 H (15-37) U/L ALT 145 H (14-59) U/L Alkaline Phosphatase 92 (46-116) U/L C-Reactive Protein 6.2 H* (<1.0) mg/dL Total Protein 7.8 (6.4-8.2) g/dl Albumin 3.6 (3.4-5.0) g/dl Globulin 4.2 gm/dL Albumin/Globulin Ratio 0.9 L (1-2) Urine Color (Yellow) Urine Appearance (Clear) Urine pH (5.0-8.0) Ur Specific [place] (1.005-1.030) Urine Protein (Negative) Urine Glucose (UA) (Negative) Urine Ketones (Negative) Urine Occult Blood (Negative) Urine Nitrite (Negative) Urine Bilirubin (Negative) Urine Urobilinogen (0.2-1.0) Ur Leukocyte Esterase (Negative) Urine RBC (0-5) /hpf Urine WBC (0-5) /hpf Ur Epithelial Cells (0-5) /hpf Urine Bacteria (FEW) /hpf Urine Mucus (FEW) /hpf Urine HCG, Qual (NEGATIVE) Meds: Medications Discontinued Medications Generic Name Dose Route Start Last Admin Trade Name Freq PRN Reason Stop Dose Admin Diatrizoate Meglum/Diatrizoate Sod 60 ml 06/12/19 22:40 06/12/19 23:20 Gastrografin 37% PO 06/12/19 22:41 60 ml ONETIME ONE Administration Iopamidol 100 ml 06/12/19 22:40 06/12/19 23:20 Isovue-300 (61%) IVPUSH 06/12/19 22:41 100 ml ONETIME ONE Administration Ondansetron HCl 4 mg 06/12/19 21:46 06/12/19 21:55 Zofran IVPUSH 06/12/19 21:47 4 mg ONETIME ONE Administration Sodium Chloride 10 ml 06/12/19 22:40 06/12/19 23:20 Saline Flush FLUSH 10 ml ONETIME PRN Administration KEEP VEIN OPEN - Re-Assessments/Exams Free Text/Narrative Re-Assessment/Exam: 06/13/19 00:14 WBC mildly elevated, CRP was 6 so did do [address] with IV and oral contrast. No acute findings with abd CT. Discharge instr. as documented. Departure - Departure Time of Disposition: 00:10 Disposition: Home, Self-Care 01 Condition: Fair Clinical Impression: Abdominal pain Qualifiers: Abdominal location: lower abdomen, unspecified Qualified Code(s): R10.30 - Lower abdominal pain, unspecified - Discharge Information Instructions: Abdominal Pain, Adult, [id number] Referrals: Chirag Freitas PA-C [Primary Care Provider] - Forms: ED Department Discharge Additional Instructions: Rest, clear liquids and very bland diet as tolerated. Tylenol q 6 to 8 hr as needed for pain. You may alternate advil or ibuprofen if needed for severe pain. Follow up clinic in 2 to 3 days for recheck. Return to ED as needed if symptoms worsening in any way. Sepsis Event Note - Evaluation Sepsis Screening Result: No Definite Risk - Focused Exam Date Exam was Performed: 06/13/19 Time Exam was Performed: 15:20
--- NOTE | 2019-06-13 07:57 | CT ---
CT abdomen and pelvis Technique: Multiple axial sections were obtained from above the dome of the diaphragm inferiorly through the pubic symphysis. Intravenous and oral contrast was utilized. Delayed images were also obtained through the bladder. Comparison: Prior abdominal ultrasound of 04/11/19. Findings: Visualized lung bases show nothing acute. Liver contains no focal abnormality. Spleen appears within normal limits. Gallbladder shows no calcified gallstones. Adrenal glands show no nodule. Pancreas is within normal limits. Kidneys show symmetric contrast enhancement without hydronephrosis or mass. Aorta shows no aneurysm. No retroperitoneal adenopathy or mesenteric abnormalities are seen. Appendix felt to be visualized and is normal. No pelvic mass or adenopathy is seen. Delayed images show contrast within the bladder. Bone window settings were reviewed which show a small fat-containing umbilical hernia. No acute osseous finding is seen. Degenerative change is noted within the L4-L5 and L5 apophyseal joints with vacuum phenomena. Impression: 1. Nonacute findings as noted above. 2. Nothing acute is appreciated on CT study of the abdomen and pelvis. No etiology to explain the patient's reported right lower quadrant symptoms. Diagnostic code #2 This report was dictated in [place] Standard Time I agree with preliminary report from [facility], finalized on 06/13/19, 12:59 AM Central Time
== END 2019-06-13 00:20 | disposition home or self-care (01) ==
LOC: JD.ED 18:28
DX: R10.30 Lower abdominal pain, unspecified (principal); F17.210 Nicotine dependence, cigarettes, uncomplicated
CPT/HCPCS: 36415; 74177; 80053; 81001; 81025; 85025; 86140; 96374; 99284; J2405; Q9963; Q9967; 99283

== ENCOUNTER 2019-06-24 18:55 | Emergency (ER) | payer MEDICAID ==
--- NOTE | 2019-06-24 19:19 | EDM.PDOC ---
ED HPI GENERAL MEDICAL PROBLEM - General Chief Complaint: Gastrointestinal Problem Stated Complaint: anal bleeding Time Seen by Provider: 06/24/19 19:03 Source of Information: Reports: Patient History Limitations: Reports: No Limitations - History of Present Illness INITIAL COMMENTS - FREE TEXT/NARRATIVE: This is a 28-year-old female. She had the flu last week and she noted she's been having diarrhea for the last 2 days and she's been having some darkish blood with the diarrhea that, feels bowl and the blood will clot. She has a history of external hemorrhoids but not internal hemorrhoids that she is aware of. Whenever she goes to have a bowel movement she does get some mild sharp pain in the midline of her abdomen but it doesn't seem to occur when she urinates. She's had 12 episodes of diarrhea today. She denies any fever or chills. She does not appear to be in distress at this time. She says every stool seems to have some blood in it. 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: Neurological History: Reports: Headaches, Chronic Psychiatric History: Reports: Anxiety, Bipolar, Depression Endocrine/Metabolic History: Reports: Diabetes, Type II, Obesity/BMI 30+ - Past Surgical History HEENT Surgical History: Reports: Adenoidectomy, Oral Surgery, Tonsillectomy Female Surgical History: Reports: D&C, Tubal Ligation Endocrine Surgical History: Reports: Thyroidectomy Social & Family History - Family History Family Medical History: Noncontributory - Tobacco Use Smoking Status *Q: Current Every Day Smoker Years of Tobacco use: 8 Packs/Tins Daily: 0.5 - Caffeine Use Caffeine Use: Reports: Coffee, Energy Drinks - Recreational Drug Use Recreational Drug Use: No - Living Situation & Occupation Living situation: Reports: , with Significant Other (Boyfriend), with Family (Daughter) Occupation: Unemployed ED ROS GENERAL - Review of Systems Review Of Systems: See Below Constitutional: Reports: Fever, Chills, Malaise HEENT: Reports: Rhinitis Respiratory: Reports: Cough Cardiovascular: Denies: Chest Pain Endocrine: Reports: No Symptoms GI/Abdominal: Reports: Abdominal Pain, Bloody Stool, Diarrhea. Denies: Nausea, Vomiting : Denies: Dysuria, Flank Pain, Frequency, Urgency Musculoskeletal: Reports: No Symptoms Skin: Reports: No Symptoms Neurological: Reports: No Symptoms Psychiatric: Reports: No Symptoms Hematologic/Lymphatic: Reports: No Symptoms ED EXAM, GI/ABD - Physical Exam Exam: See Below Exam Limited By: No Limitations General Appearance: Alert, WD/WN, No Apparent Distress Eyes: Bilateral: Normal Appearance Ears: Normal External Exam Nose: Normal Inspection Throat/Mouth: Normal Inspection, Normal Lips, Normal Voice, No Airway Compromise Head: Normocephalic Neck: Supple Respiratory/Chest: No Respiratory Distress, Lungs Clear, Normal Breath Sounds Cardiovascular: Regular Rate, Rhythm, No Murmur GI/Abdominal Exam: Soft, Other (Abdomen is enlarged, bowel sounds are positive in the upper quadrants, she has no tenderness in the upper quadrants on palpation and the right and left lower quadrant is nontender on palpation, she does have some mild soreness midline but I cannot reproduce any sharp pain, she has no rebound and no peritoneal symptoms) Back Exam: Normal Inspection, Full Range of Motion Extremities: Normal Inspection, Normal Range of Motion Neurological: Alert, Oriented Psychiatric: Normal Affect, Normal Mood Skin Exam: Warm, Dry Course - Vital Signs Last Recorded V/S: Last Vital Signs Temp 97.9 F 06/24/19 19:03 Pulse 88 06/24/19 19:03 Resp 15 06/24/19 19:03 BP 132/78 06/24/19 19:03 Pulse Ox 100 06/24/19 19:03 - Orders/Labs/Meds Orders: Active Orders 24 hr Category Date Time Status CULTURE STOOL + SHIGATOX [RM] Stat Lab 06/24/19 21:38 Received Labs: Laboratory Tests 06/24/19 06/24/19 06/24/19 Range/Units 19:28 19:40 19:40 WBC 9.54 (3.98-10.04) K/mm3 RBC 4.77 (3.98-5.22) M/mm3 Hgb 13.9 (11.2-15.7) gm/dl Hct 41.6 (34.1-44.9) % MCV 87.2 (79.4-94.8) fl MCH 29.1 (25.6-32.2) pg MCHC 33.4 (32.2-35.5) g/dl RDW Std Deviation 41.2 (36.4-46.3) fL Plt Count 300 (182-369) K/mm3 MPV 9.6 (9.4-12.3) fl Neut % (Auto) 63.8 (34.0-71.1) % Lymph % (Auto) 26.5 (19.3-51.7) % [place] % (Auto) 5.5 (4.7-12.5) % Eos % (Auto) 3.4 (0.7-5.8) Baso % (Auto) 0.3 (0.1-1.2) % Neut # (Auto) 6.09 (1.56-6.13) K/mm3 Lymph # (Auto) 2.53 (1.18-3.74) K/mm3 [place] # (Auto) 0.52 H (0.24-0.36) K/mm3 Eos # (Auto) 0.32 (0.04-0.36) K/mm3 Baso # (Auto) 0.03 (0.01-0.08) K/mm3 Sodium 140 (136-145) mEq/L Potassium 3.9 (3.5-5.1) mEq/L Chloride 104 (98-107) mEq/L Carbon Dioxide 27 (21-32) mEq/L Anion Gap 12.9 (5-15) BUN 9 (7-18) mg/dL Creatinine 0.9 (0.55-1.02) mg/dL Est Cr Clr Drug Dosing 98.99 mL/min Estimated GFR (MDRD) > 60 (>60) mL/min BUN/Creatinine Ratio 10.0 L (14-18) Glucose 218 H (74-106) mg/dL Calcium 9.1 (8.5-10.1) mg/dL Total Bilirubin 0.3 (0.2-1.0) mg/dL AST 51 H (15-37) U/L ALT 111 H (14-59) U/L Alkaline Phosphatase 87 (46-116) U/L C-Reactive Protein 3.2 H* (<1.0) mg/dL Total Protein 7.4 (6.4-8.2) g/dl Albumin 3.4 (3.4-5.0) g/dl Globulin 4.0 gm/dL Albumin/Globulin Ratio 0.9 L (1-2) Urine Color Yellow (Yellow) Urine Appearance Clear (Clear) Urine pH 6.0 (5.0-8.0) Ur Specific [place] > or = 1.030 (1.005-1.030) Urine Protein Negative (Negative) Urine Glucose (UA) Trace H (Negative) Urine Ketones Negative (Negative) Urine Occult Blood Negative (Negative) Urine Nitrite Negative (Negative) Urine Bilirubin Negative (Negative) Urine Urobilinogen 0.2 (0.2-1.0) Ur Leukocyte Esterase Negative (Negative) Urine RBC 0-5 (0-5) /hpf Urine WBC 0-5 (0-5) /hpf Ur Squamous Epith Cells 5-10 H (0-5) /hpf Urine Bacteria Few (FEW) /hpf Urine Mucus Moderate H (FEW) /hpf - Re-Assessments/Exams Free Text/Narrative Re-Assessment/Exam: 06/24/19 21:53 Patient's first stool was negative for blood. The second stool was grossly positive for blood. 06/24/19 21:55 Her hemoglobin was 13.9 with a normal platelet count, her electrolytes were normal there was just a minimal bump in her liver enzymes and her C-reactive protein was 3.2. Her second stool she was having no pain whatsoever with the bowel movement. She has no history of Crohn's disease or colitis. 06/24/19 23:00 Spoke to the patient about getting a CT scan with contrast and she indicates on the she had a CT scan but was not able to drink the oral IV very well. I looked the CT scan up and the radiologist did not see anything acute in the bowel or the appendix. We talked at length that this could be a colitis versus a bowel infection or possibly a functional diarrhea that is lasted long enough to cause irritation of the bowel lining and bleeding. What she needs to do is have a colonoscopy and she needs to call her family doctor on Thursday to be referred to a surgeon for colonoscopy. We will culture the stool and if something grows out we will call her and put her on antibiotics. Departure - Departure Time of Disposition: 23:04 Disposition: Home, Self-Care 01 Condition: Good Clinical Impression: Bloody diarrhea - Discharge Information *PRESCRIPTION DRUG MONITORING PROGRAM REVIEWED*: Not Applicable *COPY OF PRESCRIPTION DRUG MONITORING REPORT IN PATIENT NIKIA: Not Applicable Instructions: Bloody Diarrhea Referrals: Chirag Freitas PA-C [Primary Care Provider] - Forms: ED Department Discharge Additional Instructions: Continue with lots of fluids and eat normally, if you develop a fever greater than 101, have severe abdominal pain, or are pooping straight blood you need to return to the ER over the weekend, we will culture the stool and if something grows we will call you and get you on some antibiotics, you need to call your family doctor on Thursday and need to be referred to a surgeon for colonoscopy, in the meantime you might want to get some probiotics and begin to take them to see if this would resolve some of the diarrhea and also some of the blood, return to the ER as needed Sepsis Event Note - Evaluation Sepsis Screening Result: No Definite Risk - Focused Exam Vital Signs: Vital Signs Temp Pulse Resp BP Pulse Ox 06/24/19 19:03 97.9 F 88 15 132/78 100 Date Exam was Performed: 06/24/19 Time Exam was Performed: 23:00 - My Orders Last 24 Hours: My Active Orders 06/24/19 21:38 CULTURE STOOL + SHIGATOX [RM] Stat - Assessment/Plan Last 24 Hours: My Active Orders 06/24/19 21:38 CULTURE STOOL + SHIGATOX [RM] Stat
== END 2019-06-24 23:12 | disposition home or self-care (01) ==
LOC: JD.ED 18:55
DX: K92.1 Melena (principal); J45.909 Unspecified asthma, uncomplicated; E11.9 Type 2 diabetes mellitus without complications; E66.9 Obesity, unspecified; F41.9 Anxiety disorder, unspecified; F32.9 Major depressive disorder, single episode, unspecified; F17.210 Nicotine dependence, cigarettes, uncomplicated; Z79.84 Long term (current) use of oral hypoglycemic drugs; Z68.42 Body mass index [BMI] 45.0-49.9, adult; Z79.899 Other long term (current) drug therapy
CPT/HCPCS: 36415; 80053; 81001; 82272; 85025; 86140; 87046; 87425; 87427; 89055; 99282; 99284

== ENCOUNTER 2019-07-23 14:14 | Emergency (ER) | payer MEDICAID ==
--- NOTE | 2019-07-23 15:42 | EDM.PDOC ---
ED HPI GENERAL MEDICAL PROBLEM - General Chief Complaint: Abdominal Pain Stated Complaint: POSSIBLE APPEDNCITIS Time Seen by Provider: 07/23/19 15:32 - History of Present Illness INITIAL COMMENTS - FREE TEXT/NARRATIVE: 29-year-old female presents the emergency room with abdominal pain. This pain started about 2:00 this morning and was very severe before she went to bed she was doing fine. The pain stays on the right side right lower quadrant sent to radiate into her leg on the right side and into her back on the right side. The patient's last abdominal surgery was tubal ligation she is a 3 para 2 1 miscarriage 2 vaginal deliveries. 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: Neurological History: Reports: Headaches, Chronic Psychiatric History: Reports: Anxiety, Bipolar, Depression Endocrine/Metabolic History: Reports: Diabetes, Type II, Obesity/BMI 30+ - Past Surgical History HEENT Surgical History: Reports: Adenoidectomy, Oral Surgery, Tonsillectomy Female Surgical History: Reports: D&C, Tubal Ligation Endocrine Surgical History: Reports: Thyroidectomy Social & Family History - Family History Family Medical History: Noncontributory - Tobacco Use Smoking Status *Q: Former Smoker Used Tobacco, but Quit: Yes Month/Year Tobacco Last Used: june 2019 - Caffeine Use Caffeine Use: Reports: Coffee, Energy Drinks - Recreational Drug Use Recreational Drug Use: No - Living Situation & Occupation Living situation: Reports: , with Significant Other (Boyfriend), with Family (Daughter) Occupation: Unemployed ED ROS GENERAL - Review of Systems Review Of Systems: See Below Constitutional: Reports: No Symptoms HEENT: Reports: No Symptoms Respiratory: Reports: No Symptoms Cardiovascular: Reports: No Symptoms GI/Abdominal: Reports: Abdominal Pain, Nausea. Denies: Constipation, Diarrhea, Vomiting : Reports: No Symptoms Musculoskeletal: Reports: Back Pain Skin: Reports: No Symptoms ED EXAM, GI/ABD - Physical Exam Exam: See Below General Appearance: Alert, Mild Distress (From discomfort), Obese Head: Atraumatic, Normocephalic Neck: Normal Inspection, Supple, Non-Tender, Full Range of Motion Respiratory/Chest: No Respiratory Distress, Lungs Clear, Normal Breath Sounds Cardiovascular: Regular Rate, Rhythm, No Edema GI/Abdominal Exam: Normal Bowel Sounds, Other (She has right-sided abdominal discomfort no left-sided discomfort. The pain seems to be right mid side and right lower quadrant no significant suprapubic discomfort) Back Exam: Normal Inspection. No: CVA Tenderness (L), CVA Tenderness (R), Muscle Spasm, Paraspinal Tenderness, Vertebral Tenderness Extremities: No Pedal Edema Neurological: Alert, Oriented, Normal Cognition Course - Vital Signs Last Recorded V/S: Last Vital Signs Temp 36.2 C 07/23/19 15:03 Pulse 88 07/23/19 15:03 Resp 17 07/23/19 15:03 BP 116/73 07/23/19 15:03 Pulse Ox 99 07/23/19 15:03 - Orders/Labs/Meds Labs: Laboratory Tests 07/23/19 07/23/19 07/23/19 Range/Units 15:25 15:25 16:42 WBC 10.21 H (3.98-10.04) K/mm3 RBC 4.86 (3.98-5.22) M/mm3 Hgb 14.1 (11.2-15.7) gm/dl Hct 42.5 (34.1-44.9) % MCV 87.4 (79.4-94.8) fl MCH 29.0 (25.6-32.2) pg MCHC 33.2 (32.2-35.5) g/dl RDW Std Deviation 41.2 (36.4-46.3) fL Plt Count 308 (182-369) K/mm3 MPV 9.7 (9.4-12.3) fl Neut % (Auto) 62.9 (34.0-71.1) % Lymph % (Auto) 28.7 (19.3-51.7) % [place] % (Auto) 5.5 (4.7-12.5) % Eos % (Auto) 2.1 (0.7-5.8) Baso % (Auto) 0.5 (0.1-1.2) % Neut # (Auto) 6.43 H (1.56-6.13) K/mm3 Lymph # (Auto) 2.93 (1.18-3.74) K/mm3 [place] # (Auto) 0.56 H (0.24-0.36) K/mm3 Eos # (Auto) 0.21 (0.04-0.36) K/mm3 Baso # (Auto) 0.05 (0.01-0.08) K/mm3 Manual Slide Review Normal smear Sodium 140 (136-145) mEq/L Potassium 3.7 (3.5-5.1) mEq/L Chloride 104 (98-107) mEq/L Carbon Dioxide 25 (21-32) mEq/L Anion Gap 14.7 (5-15) BUN 11 (7-18) mg/dL Creatinine 0.9 (0.55-1.02) mg/dL Est Cr Clr Drug Dosing 98.12 mL/min Estimated GFR (MDRD) > 60 (>60) mL/min BUN/Creatinine Ratio 12.2 L (14-18) Glucose 129 H (74-106) mg/dL Calcium 9.3 (8.5-10.1) mg/dL Total Bilirubin 0.4 (0.2-1.0) mg/dL AST 114 H (15-37) U/L ALT 214 H (14-59) U/L Alkaline Phosphatase 84 (46-116) U/L Total Protein 8.0 (6.4-8.2) g/dl Albumin 3.8 (3.4-5.0) g/dl Globulin 4.2 gm/dL Albumin/Globulin Ratio 0.9 L (1-2) Urine Color Yellow (Yellow) Urine Appearance Clear (Clear) Urine pH 5.5 (5.0-8.0) Ur Specific [place] > or = 1.030 (1.005-1.030) Urine Protein Negative (Negative) Urine Glucose (UA) Negative (Negative) Urine Ketones Negative (Negative) Urine Occult Blood Negative (Negative) Urine Nitrite Negative (Negative) Urine Bilirubin Negative (Negative) Urine Urobilinogen 0.2 (0.2-1.0) Ur Leukocyte Esterase Negative (Negative) Urine RBC 0-5 (0-5) /hpf Urine WBC 0-5 (0-5) /hpf Ur Squamous Epith Cells 5-10 H (0-5) /hpf Urine Bacteria Few (FEW) /hpf Urine Mucus Moderate H (FEW) /hpf Urine HCG, Qual (NEGATIVE) 07/23/19 Range/Units 16:42 WBC (3.98-10.04) K/mm3 RBC (3.98-5.22) M/mm3 Hgb (11.2-15.7) gm/dl Hct (34.1-44.9) % MCV (79.4-94.8) fl MCH (25.6-32.2) pg MCHC (32.2-35.5) g/dl RDW Std Deviation (36.4-46.3) fL Plt Count (182-369) K/mm3 MPV (9.4-12.3) fl Neut % (Auto) (34.0-71.1) % Lymph % (Auto) (19.3-51.7) % [place] % (Auto) (4.7-12.5) % Eos % (Auto) (0.7-5.8) Baso % (Auto) (0.1-1.2) % Neut # (Auto) (1.56-6.13) K/mm3 Lymph # (Auto) (1.18-3.74) K/mm3 [place] # (Auto) (0.24-0.36) K/mm3 Eos # (Auto) (0.04-0.36) K/mm3 Baso # (Auto) (0.01-0.08) K/mm3 Manual Slide Review Sodium (136-145) mEq/L Potassium (3.5-5.1) mEq/L Chloride (98-107) mEq/L Carbon Dioxide (21-32) mEq/L Anion Gap (5-15) BUN (7-18) mg/dL Creatinine (0.55-1.02) mg/dL Est Cr Clr Drug Dosing mL/min Estimated GFR (MDRD) (>60) mL/min BUN/Creatinine Ratio (14-18) Glucose (74-106) mg/dL Calcium (8.5-10.1) mg/dL Total Bilirubin (0.2-1.0) mg/dL AST (15-37) U/L ALT (14-59) U/L Alkaline Phosphatase (46-116) U/L Total Protein (6.4-8.2) g/dl Albumin (3.4-5.0) g/dl Globulin gm/dL Albumin/Globulin Ratio (1-2) Urine Color (Yellow) Urine Appearance (Clear) Urine pH (5.0-8.0) Ur Specific [place] (1.005-1.030) Urine Protein (Negative) Urine Glucose (UA) (Negative) Urine Ketones (Negative) Urine Occult Blood (Negative) Urine Nitrite (Negative) Urine Bilirubin (Negative) Urine Urobilinogen (0.2-1.0) Ur Leukocyte Esterase (Negative) Urine RBC (0-5) /hpf Urine WBC (0-5) /hpf Ur Squamous Epith Cells (0-5) /hpf Urine Bacteria (FEW) /hpf Urine Mucus (FEW) /hpf Urine HCG, Qual Negative (NEGATIVE) Meds: Medications Discontinued Medications Generic Name Dose Route Start Last Admin Trade Name Freq PRN Reason Stop Dose Admin Hydromorphone HCl 0.5 mg 07/23/19 15:43 07/23/19 15:53 Dilaudid IVPUSH 07/23/19 15:44 0.5 mg ONETIME ONE Administration Hydromorphone HCl 0.5 mg 07/23/19 18:11 07/23/19 18:15 Dilaudid IVPUSH 07/23/19 18:12 0.5 mg ONETIME ONE Administration Lactated Ringer's 500 mls @ 999 mls/hr 07/23/19 15:43 07/23/19 15:54 Ringers, Lactated IV 07/23/19 16:13 999 mls/hr .BOLUS ONE Administration Lactated Ringer's 1,000 mls @ 125 mls/hr 07/23/19 15:45 07/23/19 16:45 Ringers, Lactated IV 125 mls/hr ASDIRECTED ELKIN Administration Iopamidol 50 ml 07/23/19 18:15 07/23/19 18:24 Isovue-300 (61%) IVPUSH 07/23/19 18:16 25 ml ONETIME ONE Administration Iopamidol 100 ml 07/23/19 18:15 07/23/19 18:24 Isovue-300 (61%) IVPUSH 07/23/19 18:16 100 ml ONETIME ONE Administration Ondansetron HCl 4 mg 07/23/19 15:45 07/23/19 15:54 Zofran IVPUSH 07/23/19 15:46 4 mg ONETIME ONE Administration Sodium Chloride 10 ml 07/23/19 18:15 07/23/19 18:24 Saline Flush FLUSH 07/23/19 18:16 10 ml ONETIME ONE Administration - Re-Assessments/Exams Free Text/Narrative Re-Assessment/Exam: 07/23/19 19:21 Evaluation of the patient has been unrevealing at this point laboratory evaluation does not does not suggest any problems she is got some transaminase elevation and she has a history of fatty liver. When he had get a CT on her which again shows a fatty infiltration of the liver but no other etiology for abdominal pain such as appendicitis there was no evidence of any hydronephrosis within the kidneys. No other abnormalities noted I am wondering if some of the etiology of this pain might be coming from her back but her exam is significant for abdominal discomfort. Departure - Departure Time of Disposition: 19:22 Disposition: Home, Self-Care 01 Clinical Impression: Abdominal pain of unknown etiology - Discharge Information Prescriptions: Acetaminophen/HYDROcodone [[place] 325-5 MG] 1 - 2 tab PO Q6H PRN #15 tablet PRN Reason: Pain Instructions: Abdominal Pain, Adult Referrals: Chirag Freitas PA-C [Primary Care Provider] - Forms: ED Department Discharge Additional Instructions: Return to the emergency room with any questions problems or worsening symptoms. Return to the emergency room in 24 hours if not improving sooner if getting worse. Clear liquid diet for the next 24 hours then slowly advance as tolerated. Use the pain medication only as needed for the discomfort. Follow-up in the clinic this next week Sepsis Event Note - Evaluation Sepsis Screening Result: No Definite Risk - Focused Exam Date Exam was Performed: 07/24/19 Time Exam was Performed: 07:41
[2019-07-23] MEDS ORDERED: Lactated Ringers 500 ML IV ONE (15:43)
[2019-07-23] MEDS ORDERED: HYDROmorphone 0.5 MG/0.5 ML Syringe IVPUSH ONE ×2 (15:43→18:11)
[2019-07-23] MEDS ORDERED: Ondansetron 4 MG/2 ML SDV IVPUSH ONE (15:45)
[2019-07-23] MEDS ORDERED: Lactated Ringers 1,000 ML IV SCH (15:45)
[2019-07-23] MEDS ORDERED: Sodium Chloride 0.9% 10 ML Syringe FLUSH ONE (18:15)
[2019-07-23] MEDS ORDERED: Iopamidol 612 MG/ML 50 ML SDV IVPUSH ONE (18:15)
[2019-07-23] MEDS ORDERED: Iopamidol 612 MG/ML 100 ML Bottle IVPUSH ONE (18:15)
--- NOTE | 2019-07-23 18:48 | CT ---
CT abdomen and pelvis Technique: Multiple axial sections were obtained from above the dome of the diaphragm inferiorly through the pubic symphysis. Intravenous contrast was utilized. No oral contrast has been given. Comparison: Prior CT abdomen and pelvis study of 06/12/19. Liver shows fatty infiltration. No focal abnormality is appreciated within the liver. Visualized lung bases showed nothing acute. Spleen appears within normal limits. Adrenal glands show no nodule. Pancreas is within normal limits. Gallbladder contains no calcified gallstones. Aorta shows no aneurysm. No retroperitoneal adenopathy or mesenteric abnormalities are seen. Kidneys show symmetric contrast enhancement without hydronephrosis or mass. Appendix is seen which is normal in size. No pelvic mass or adenopathy is identified. No adnexal abnormalities are seen within the pelvis. Bone window settings were reviewed which appear within normal limits for the patient's age. Small fat-containing umbilical hernia is noted. Small hemangioma is noted within the T9 vertebral body. Impression: 1. Fatty infiltration within the liver. Other findings as noted above which are nonacute. 2. Nothing is seen to indicate an etiology for the patient's right abdominal pain. Diagnostic code #2 Study was dictated in [place] Standard Time
== END 2019-07-23 19:42 | disposition home or self-care (01) ==
LOC: JD.ED 14:14
DX: R10.9 Unspecified abdominal pain (principal); E11.9 Type 2 diabetes mellitus without complications; E66.9 Obesity, unspecified; Z68.42 Body mass index [BMI] 45.0-49.9, adult; Z79.84 Long term (current) use of oral hypoglycemic drugs; Z87.891 Personal history of nicotine dependence
CPT/HCPCS: 36415; 74177; 80053; 81001; 81025; 85025; 96361; 96374; 96375; 96376; 99284; J1170; J2405; J7120; Q9967

== ENCOUNTER 2019-12-04 17:20 | Emergency (ER) | payer MEDICAID ==
[2019-12-04] MEDS ORDERED: HYDROmorphone 0.5 MG/0.5 ML Syringe IVPUSH ONE ×2 (17:39→19:52)
[2019-12-04] MEDS ORDERED: Sodium Chloride 0.9% 1,000 ML IV ONE (17:39)
[2019-12-04] MEDS ORDERED: Ondansetron 4 MG in Sodium Chloride 0.9% 50 ML IV ONE (17:39)
[2019-12-04] MEDS ORDERED: Sodium Chloride 0.9% 10 ML Syringe FLUSH PRN (17:39)
--- NOTE | 2019-12-04 17:43 | EDM.PDOC ---
ED HPI GENERAL MEDICAL PROBLEM - General Chief Complaint: Abdominal Pain Stated Complaint: SHARP LEFT ABDOMINAL PAIN Time Seen by Provider: 12/04/19 17:41 Source of Information: Reports: Patient History Limitations: Reports: No Limitations - History of Present Illness INITIAL COMMENTS - FREE TEXT/NARRATIVE: An unfortunate 29-year-old morbidly obese female who presents emergency department today with complaint of left lower quadrant abdominal pain. Patient reports that she started having pain yesterday describes the pain as a sharp stabbing type pain reports she put a heating pad on her abdomen and did not take anything for the pain but nothing makes the pain better and nothing made the pain worse she reports no vomiting positive nausea no diarrhea no fever no chills no vaginal discharge no dysuria no frequency no urgency patient denies similar pain in the past - Related Data Allergies Allergy/AdvReac Type Severity Reaction Status Date / Time No Known Allergies Allergy Verified 07/23/19 15:02 Home Meds: Home Meds ALPRAZolam [Xanax] 1 mg PO BID PRN 02/13/19 [History] Zolpidem Tartrate [Ambien] 5 mg PO BEDTIME 02/13/19 [History] metFORMIN [Glucophage XR] 1,000 mg PO BID 05/09/19 [History] Past Medical History 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: Reports: Asthma 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: Neurological History: Reports: Headaches, Chronic Psychiatric History: Reports: Anxiety, Bipolar, Depression Endocrine/Metabolic History: Reports: Diabetes, Type II, Obesity/BMI 30+ - Past Surgical History HEENT Surgical History: Reports: Adenoidectomy, Oral Surgery, Tonsillectomy Female Surgical History: Reports: D&C, Tubal Ligation Endocrine Surgical History: Reports: Thyroidectomy Social & Family History - Family History Family Medical History: Noncontributory - Tobacco Use Smoking Status *Q: Former Smoker Used Tobacco, but Quit: Yes Month/Year Tobacco Last Used: 1 month ago - Caffeine Use Caffeine Use: Reports: None - Recreational Drug Use Recreational Drug Use: No - Living Situation & Occupation Living situation: Reports: , with Significant Other (Boyfriend), with Family (Daughter) Occupation: Unemployed ED ROS GENERAL - Review of Systems Review Of Systems: See Below Constitutional: Denies: Fever, Chills GI/Abdominal: Reports: Abdominal Pain, Nausea. Denies: Bloody Stool, Diarrhea, Difficulty Swallowing, Melena, Vomiting ED EXAM, GI/ABD - Physical Exam Exam: See Below Exam Limited By: No Limitations General Appearance: Alert, WD/WN, Moderate Distress, Obese Throat/Mouth: Normal Inspection, Normal Lips, Normal Teeth, Normal Gums, Normal Oropharynx, Normal Voice, No Airway Compromise Head: Atraumatic, Normocephalic Neck: Normal Inspection, Supple, Non-Tender, Full Range of Motion Respiratory/Chest: No Respiratory Distress, Lungs Clear, Normal Breath Sounds, No Accessory Muscle Use, Chest Non-Tender Cardiovascular: Normal Peripheral Pulses, Regular Rate, Rhythm, No Edema, No Gallop, No JVD, No Murmur, No Rub GI/Abdominal Exam: Normal Bowel Sounds, Soft, Tender (moderate right lower quadrant) Back Exam: Normal Inspection, Full Range of Motion, NT Extremities: Normal Inspection, Normal Range of Motion, Non-Tender, Normal Capillary Refill, No Pedal Edema Neurological: Alert, Oriented Skin Exam: Warm, Dry Course - Vital Signs Last Recorded V/S: Last Vital Signs Temp 97.3 F 12/04/19 17:42 Pulse 94 12/04/19 17:42 Resp 20 12/04/19 17:42 BP 125/81 12/04/19 17:42 Pulse Ox 96 12/04/19 17:42 - Orders/Labs/Meds Orders: Active Orders 24 hr Category Date Time Status Sodium Chloride 0.9% [Saline Flush] Med 12/04/19 17:39 Active 10 ml FLUSH ASDIRECTED PRN Saline Lock Insert [OM.PC] Stat Oth 12/04/19 17:39 Ordered Medication Orders Sodium Chloride (Saline Flush) 10 ml FLUSH ASDIRECTED PRN PRN Reason: Keep Vein Open Last Admin: 12/04/19 17:58 Dose: 10 ml Documented by: ANA Labs: Laboratory Tests 12/04/19 12/04/19 12/04/19 Range/Units 17:48 17:50 17:50 WBC 11.10 H (3.98-10.04) K/mm3 RBC 4.96 (3.98-5.22) M/mm3 Hgb 14.5 (11.2-15.7) gm/dl Hct 44.1 (34.1-44.9) % MCV 88.9 (79.4-94.8) fl MCH 29.2 (25.6-32.2) pg MCHC 32.9 (32.2-35.5) g/dl RDW Std Deviation 43.4 (36.4-46.3) fL Plt Count 336 (182-369) K/mm3 MPV 9.4 (9.4-12.3) fl Neut % (Auto) 61.8 (34.0-71.1) % Lymph % (Auto) 27.2 (19.3-51.7) % [place] % (Auto) 6.7 (4.7-12.5) % Eos % (Auto) 3.3 (0.7-5.8) Baso % (Auto) 0.5 (0.1-1.2) % Neut # (Auto) 6.87 H (1.56-6.13) K/mm3 Lymph # (Auto) 3.02 (1.18-3.74) K/mm3 [place] # (Auto) 0.74 H (0.24-0.36) K/mm3 Eos # (Auto) 0.37 H (0.04-0.36) K/mm3 Baso # (Auto) 0.05 (0.01-0.08) K/mm3 Manual Slide Review Normal smear Sodium 139 (136-145) mEq/L Potassium 4.2 (3.5-5.1) mEq/L Chloride 103 (98-107) mEq/L Carbon Dioxide 26 (21-32) mEq/L Anion Gap 14.2 (5-15) BUN 9 (7-18) mg/dL Creatinine 0.9 (0.55-1.02) mg/dL Est Cr Clr Drug Dosing 94.72 mL/min Estimated GFR (MDRD) > 60 (>60) mL/min BUN/Creatinine Ratio 10.0 L (14-18) Glucose 137 H (74-106) mg/dL Calcium 9.4 (8.5-10.1) mg/dL Total Bilirubin 0.4 (0.2-1.0) mg/dL AST 110 H (15-37) U/L ALT 147 H (14-59) U/L Alkaline Phosphatase 93 (46-116) U/L Total Protein 8.0 (6.4-8.2) g/dl Albumin 3.6 (3.4-5.0) g/dl Globulin 4.4 gm/dL Albumin/Globulin Ratio 0.8 L (1-2) HCG, Qual (NEGATIVE) Urine Color Yellow (Yellow) Urine Appearance Clear (Clear) Urine pH 6.0 (5.0-8.0) Ur Specific [place] > or = 1.030 (1.005-1.030) Urine Protein Negative (Negative) Urine Glucose (UA) Negative (Negative) Urine Ketones Negative (Negative) Urine Occult Blood Negative (Negative) Urine Nitrite Negative (Negative) Urine Bilirubin Negative (Negative) Urine Urobilinogen 1.0 (0.2-1.0) Ur Leukocyte Esterase Negative (Negative) 12/04/19 Range/Units 17:50 WBC (3.98-10.04) K/mm3 RBC (3.98-5.22) M/mm3 Hgb (11.2-15.7) gm/dl Hct (34.1-44.9) % MCV (79.4-94.8) fl MCH (25.6-32.2) pg MCHC (32.2-35.5) g/dl RDW Std Deviation (36.4-46.3) fL Plt Count (182-369) K/mm3 MPV (9.4-12.3) fl Neut % (Auto) (34.0-71.1) % Lymph % (Auto) (19.3-51.7) % [place] % (Auto) (4.7-12.5) % Eos % (Auto) (0.7-5.8) Baso % (Auto) (0.1-1.2) % Neut # (Auto) (1.56-6.13) K/mm3 Lymph # (Auto) (1.18-3.74) K/mm3 [place] # (Auto) (0.24-0.36) K/mm3 Eos # (Auto) (0.04-0.36) K/mm3 Baso # (Auto) (0.01-0.08) K/mm3 Manual Slide Review Sodium (136-145) mEq/L Potassium (3.5-5.1) mEq/L Chloride (98-107) mEq/L Carbon Dioxide (21-32) mEq/L Anion Gap (5-15) BUN (7-18) mg/dL Creatinine (0.55-1.02) mg/dL Est Cr Clr Drug Dosing mL/min Estimated GFR (MDRD) (>60) mL/min BUN/Creatinine Ratio (14-18) Glucose (74-106) mg/dL Calcium (8.5-10.1) mg/dL Total Bilirubin (0.2-1.0) mg/dL AST (15-37) U/L ALT (14-59) U/L Alkaline Phosphatase (46-116) U/L Total Protein (6.4-8.2) g/dl Albumin (3.4-5.0) g/dl Globulin gm/dL Albumin/Globulin Ratio (1-2) HCG, Qual Negative (NEGATIVE) Urine Color (Yellow) Urine Appearance (Clear) Urine pH (5.0-8.0) Ur Specific [place] (1.005-1.030) Urine Protein (Negative) Urine Glucose (UA) (Negative) Urine Ketones (Negative) Urine Occult Blood (Negative) Urine Nitrite (Negative) Urine Bilirubin (Negative) Urine Urobilinogen (0.2-1.0) Ur Leukocyte Esterase (Negative) Meds: Medications Generic Name Dose Route Start Last Admin Trade Name Freq PRN Reason Stop Dose Admin Sodium Chloride 10 ml 12/04/19 17:39 12/04/19 17:58 Saline Flush FLUSH 10 ml ASDIRECTED PRN Administration Keep Vein Open Discontinued Medications Generic Name Dose Route Start Last Admin Trade Name Freq PRN Reason Stop Dose Admin Hydromorphone HCl 0.5 mg 12/04/19 17:39 12/04/19 17:59 Dilaudid IVPUSH 12/04/19 17:40 0.5 mg ONETIME ONE Administration Ondansetron HCl 4 mg/ Sodium 52 mls @ 100 mls/hr 12/04/19 17:39 Chloride IV 12/04/19 18:11 ONETIME ONE Sodium Chloride 1,000 mls @ 1,000 mls/hr 12/04/19 17:39 12/04/19 17:58 Normal Saline IV 12/04/19 18:38 1,000 mls/hr ONETIME ONE Administration Ondansetron HCl 4 mg 12/04/19 17:47 12/04/19 17:58 Zofran IVPUSH 12/04/19 17:48 4 mg ONETIME ONE Administration - Re-Assessments/Exams Free Text/Narrative Re-Assessment/Exam: 12/04/19 19:51 CT abdomen and pelvis "impression: #1 fatty infiltration within the liver. #2 no acute abnormalities appreciated on the noncontrast CT study of the abdomen and pelvis. #3 no change from previous study is seen." Departure - Departure Time of Disposition: 19:51 Disposition: Home, Self-Care 01 Clinical Impression: Left lower quadrant pain - Discharge Information Referrals: Chirag Freitas PA-C [Primary Care Provider] - Forms: ED Department Discharge Additional Instructions: Home, rest, Tylenol or Motrin for pain, return as needed for worsening condition Sepsis Event Note (ED) - Focused Exam Vital Signs: Vital Signs Temp Pulse Resp BP Pulse Ox 12/04/19 17:42 97.3 F 94 20 125/81 96 - My Orders Last 24 Hours: My Active Orders 12/04/19 17:39 Sodium Chloride 0.9% [Saline Flush] 10 ml FLUSH ASDIRECTED PRN Saline Lock Insert [OM.PC] Stat - Assessment/Plan Last 24 Hours: My Active Orders 12/04/19 17:39 Sodium Chloride 0.9% [Saline Flush] 10 ml FLUSH ASDIRECTED PRN Saline Lock Insert [OM.PC] Stat
[2019-12-04] MEDS ORDERED: Ondansetron 4 MG/2 ML SDV IVPUSH ONE (17:47)
--- NOTE | 2019-12-04 19:47 | CT ---
CT abdomen and pelvis Technique: Multiple axial sections were obtained from above the dome of the diaphragm inferiorly through the pubic symphysis. Intravenous and oral contrast not utilized. Comparison: Previous CT abdomen and pelvis exam performed on 07/23/19. Findings: Visualized lung bases show nothing acute. Liver shows diffuse decreased density compatible with fatty infiltration. Spleen appears within normal limits. Adrenal glands show no nodule. Pancreas appears within normal limits. Gallbladder contains no calcified gallstones. Aorta shows no aneurysm. No retroperitoneal adenopathy or mesenteric abnormalities are seen. Appendix is seen and is normal in size. No pelvic mass or adenopathy is seen. No free fluid or inflammatory change is appreciated. Bone window settings were reviewed which appear within normal limits for the patient's age. Small fat-containing umbilical hernia is noted. Kidneys show no abnormal calcifications. No ureteral dilatation or ureteral stone is seen. No bladder calculi are seen. Impression: 1. Fatty infiltration within the liver. 2. No acute abnormality is appreciated on noncontrast CT study of the abdomen and pelvis. 3. No change from previous study is seen. Diagnostic code #2 This report was dictated in [facility]
== END 2019-12-04 20:08 | disposition home or self-care (01) ==
LOC: JD.ED 17:20
DX: R10.32 Left lower quadrant pain (principal); E66.01 Morbid (severe) obesity due to excess calories; F41.9 Anxiety disorder, unspecified; F31.9 Bipolar disorder, unspecified; E11.9 Type 2 diabetes mellitus without complications; Z87.891 Personal history of nicotine dependence; Z79.899 Other long term (current) drug therapy
CPT/HCPCS: 36415; 74176; 80053; 81003; 84703; 85025; 96361; 96374; 96375; 96376; 99284; J1170; J2405; J7030

== ENCOUNTER 2020-02-24 21:28 | Emergency (ER) | payer MEDICAID ==
--- NOTE | 2020-02-24 23:03 | EDM.PDOC ---
ED HPI GENERAL MEDICAL PROBLEM - General Chief Complaint: Cardiovascular Problem Stated Complaint: BLOOD PRESSURE LOW/URINE DARK ORANGE Time Seen by Provider: 02/24/20 22:42 Source of Information: Reports: Patient History Limitations: Reports: No Limitations - History of Present Illness INITIAL COMMENTS - FREE TEXT/NARRATIVE: This is a 29-year-old female. She had gastric sleeve back in November. She has lost approximately 52 pounds since that time. Apparently recently she has been having some anorexia being lethargic and noted to have a low blood pressure at home and dark orange urine. When she went to the clinic today her blood pressure was 97/67. They did not do orthostatic vital signs. She is on chewable vitamins. But she says anytime she tries to eat this does not sit well. She arrived to the ER her BP was 133/88 however resting in the room it dropped to 123/75. He comes to the ER because she is not feeling any better. 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: Neurological History: Reports: Headaches, Chronic Psychiatric History: Reports: Anxiety, Bipolar, Depression Endocrine/Metabolic History: Reports: Diabetes, Type II, Obesity/BMI 30+ - Past Surgical History HEENT Surgical History: Reports: Adenoidectomy, Oral Surgery, Tonsillectomy GI Surgical History: Reports: Bariatric Procedure Female Surgical History: Reports: D&C, Tubal Ligation Endocrine Surgical History: Reports: Thyroidectomy Social & Family History - Family History Family Medical History: Noncontributory - Tobacco Use Smoking Status *Q: Current Every Day Smoker Years of Tobacco use: 8 Packs/Tins Daily: 0.5 Second Hand Smoke Exposure: Yes - Caffeine Use Caffeine Use: Reports: None - Recreational Drug Use Recreational Drug Use: No - Living Situation & Occupation Living situation: Reports: , with Significant Other (Boyfriend), with Family (Daughter) Occupation: Unemployed ED ROS GENERAL - Review of Systems Review Of Systems: See Below Constitutional: Reports: Fatigue. Denies: Fever, Chills HEENT: Reports: No Symptoms Respiratory: Denies: Shortness of Breath, Cough Cardiovascular: Reports: No Symptoms Endocrine: Reports: No Symptoms GI/Abdominal: Reports: Anorexia : Denies: Dysuria Musculoskeletal: Reports: No Symptoms Skin: Reports: No Symptoms Neurological: Reports: No Symptoms Psychiatric: Reports: No Symptoms ED EXAM, GENERAL - Physical Exam Exam: See Below Exam Limited By: No Limitations General Appearance: Alert, WD/WN, No Apparent Distress Eye Exam: Bilateral Eye: Normal Inspection Ears: Normal External Exam Nose: Normal Inspection Throat/Mouth: Normal Inspection, Normal Lips, Normal Voice, No Airway Compromise Head: Normocephalic Neck: Supple Respiratory/Chest: No Respiratory Distress, Lungs Clear, Normal Breath Sounds Cardiovascular: Regular Rate, Rhythm, No Murmur GI/Abdominal: Soft Back Exam: Full Range of Motion Extremities: Normal Inspection, Normal Range of Motion Neurological: Alert, Oriented Psychiatric: Normal Affect, Normal Mood Skin Exam: Warm, Dry Course - Vital Signs Last Recorded V/S: Last Vital Signs Temp 98.2 F 02/24/20 22:37 Pulse 91 02/24/20 22:37 Resp 16 02/24/20 22:37 BP 133/88 02/24/20 22:37 Pulse Ox 100 02/24/20 22:37 Orthostatic Blood Pressure [ 106/73 Standing] Orthostatic Blood Pressure [ 125/86 Sitting] Orthostatic Blood Pressure [ 111/55 Supine] - Orders/Labs/Meds Orders: Active Orders 24 hr Category Date Time Status Orthostatic Vital Signs [RC] ASDIRECTED Care 02/24/20 22:54 Active Sodium Chloride 0.9% [Normal Saline] 1,000 ml Med 02/24/20 23:45 Active IV ASDIRECTED Medication Orders Sodium Chloride (Normal Saline) 1,000 mls @ 1,000 mls/hr IV ASDIRECTED ELKIN Last Admin: 02/25/20 00:16 Dose: 1,000 mls/hr Documented by: AMANDA Labs: Laboratory Tests 02/24/20 02/24/20 02/24/20 Range/Units 23:10 23:10 23:10 WBC 9.88 (3.98-10.04) K/mm3 RBC 5.03 (3.98-5.22) M/mm3 Hgb 15.0 (11.2-15.7) gm/dl Hct 45.0 H (34.1-44.9) % MCV 89.5 (79.4-94.8) fl MCH 29.8 (25.6-32.2) pg MCHC 33.3 (32.2-35.5) g/dl RDW Std Deviation 42.5 (36.4-46.3) fL Plt Count 265 (182-369) K/mm3 MPV 10.3 (9.4-12.3) fl Neut % (Auto) 61.2 (34.0-71.1) % Lymph % (Auto) 30.1 (19.3-51.7) % [place] % (Auto) 5.9 (4.7-12.5) % Eos % (Auto) 2.4 (0.7-5.8) Baso % (Auto) 0.2 (0.1-1.2) % Neut # (Auto) 6.05 (1.56-6.13) K/mm3 Lymph # (Auto) 2.97 (1.18-3.74) K/mm3 [place] # (Auto) 0.58 H (0.24-0.36) K/mm3 Eos # (Auto) 0.24 (0.04-0.36) K/mm3 Baso # (Auto) 0.02 (0.01-0.08) K/mm3 Sodium 139 (136-145) mEq/L Potassium 3.4 L (3.5-5.1) mEq/L Chloride 105 (98-107) mEq/L Carbon Dioxide 26 (21-32) mEq/L Anion Gap 11.4 (5-15) BUN 9 (7-18) mg/dL Creatinine 0.9 (0.55-1.02) mg/dL Est Cr Clr Drug Dosing 81.08 mL/min Estimated GFR (MDRD) > 60 (>60) mL/min BUN/Creatinine Ratio 10.0 L (14-18) Glucose 101 (74-106) mg/dL Calcium 9.3 (8.5-10.1) mg/dL Total Bilirubin 0.6 (0.2-1.0) mg/dL AST 41 H (15-37) U/L ALT 60 H (14-59) U/L Alkaline Phosphatase 66 (46-116) U/L Total Protein 7.7 (6.4-8.2) g/dl Albumin 3.7 (3.4-5.0) g/dl Globulin 4.0 gm/dL Albumin/Globulin Ratio 0.9 L (1-2) TSH 3rd Generation 0.753 (0.358-3.74) uIU/mL HCG, Qual Negative (NEGATIVE) Urine Color (Yellow) Urine Appearance (Clear) Urine pH (5.0-8.0) Ur Specific [place] (1.005-1.030) Urine Protein (Negative) Urine Glucose (UA) (Negative) Urine Ketones (Negative) Urine Occult Blood (Negative) Urine Nitrite (Negative) Urine Bilirubin (Negative) Urine Urobilinogen (0.2-1.0) Ur Leukocyte Esterase (Negative) Urine RBC (0-5) /hpf Urine WBC (0-5) /hpf Ur Epithelial Cells (0-5) /hpf Urine Bacteria (FEW) /hpf Urine Mucus (FEW) /hpf 02/25/20 Range/Units 01:15 WBC (3.98-10.04) K/mm3 RBC (3.98-5.22) M/mm3 Hgb (11.2-15.7) gm/dl Hct (34.1-44.9) % MCV (79.4-94.8) fl MCH (25.6-32.2) pg MCHC (32.2-35.5) g/dl RDW Std Deviation (36.4-46.3) fL Plt Count (182-369) K/mm3 MPV (9.4-12.3) fl Neut % (Auto) (34.0-71.1) % Lymph % (Auto) (19.3-51.7) % [place] % (Auto) (4.7-12.5) % Eos % (Auto) (0.7-5.8) Baso % (Auto) (0.1-1.2) % Neut # (Auto) (1.56-6.13) K/mm3 Lymph # (Auto) (1.18-3.74) K/mm3 [place] # (Auto) (0.24-0.36) K/mm3 Eos # (Auto) (0.04-0.36) K/mm3 Baso # (Auto) (0.01-0.08) K/mm3 Sodium (136-145) mEq/L Potassium (3.5-5.1) mEq/L Chloride (98-107) mEq/L Carbon Dioxide (21-32) mEq/L Anion Gap (5-15) BUN (7-18) mg/dL Creatinine (0.55-1.02) mg/dL Est Cr Clr Drug Dosing mL/min Estimated GFR (MDRD) (>60) mL/min BUN/Creatinine Ratio (14-18) Glucose (74-106) mg/dL Calcium (8.5-10.1) mg/dL Total Bilirubin (0.2-1.0) mg/dL AST (15-37) U/L ALT (14-59) U/L Alkaline Phosphatase (46-116) U/L Total Protein (6.4-8.2) g/dl Albumin (3.4-5.0) g/dl Globulin gm/dL Albumin/Globulin Ratio (1-2) TSH 3rd Generation (0.358-3.74) uIU/mL HCG, Qual (NEGATIVE) Urine Color Dark yellow (Yellow) Urine Appearance Clear (Clear) Urine pH 5.5 (5.0-8.0) Ur Specific [place] > or = 1.030 (1.005-1.030) Urine Protein 1+ H (Negative) Urine Glucose (UA) Negative (Negative) Urine Ketones 1+ H (Negative) Urine Occult Blood Negative (Negative) Urine Nitrite Negative (Negative) Urine Bilirubin 1+ H (Negative) Urine Urobilinogen 1.0 (0.2-1.0) Ur Leukocyte Esterase Negative (Negative) Urine RBC 0-5 (0-5) /hpf Urine WBC 5-10 H (0-5) /hpf Ur Epithelial Cells 5-10 H (0-5) /hpf Urine Bacteria Moderate H (FEW) /hpf Urine Mucus Many H (FEW) /hpf Meds: Medications Generic Name Dose Route Start Last Admin Trade Name Freq PRN Reason Stop Dose Admin Sodium Chloride 1,000 mls @ 1,000 mls/hr 02/24/20 23:45 02/25/20 00:16 Normal Saline IV 1,000 mls/hr ASDIRECTED [facility] Administration - Re-Assessments/Exams Free Text/Narrative Re-Assessment/Exam: 02/25/20 00:35 Orthostatic vital signs Molly BP 111/55 heart rate of 77 and asymptomatic, sitting heart rate of 82 blood pressure 125/96 and asymptomatic, standing heart rate of 87 blood pressure of 106/73 with no symptoms. 02/25/20 03:10 02 the patient regarding the blood results that do suggest with her urine that she is mildly dehydrated. Her orthostatic vital signs suggest she is mildly dehydrated and yet she is drinking at least a gallon of fluids a day. I told her to call her surgeon to ask why she is not absorbing water like she ought to. She also has a mild urinary tract infection which we will put on her antibiotics for. Departure - Departure Time of Disposition: 03:11 Disposition: Home, Self-Care 01 Condition: Good Clinical Impression: Dehydration Urinary tract infection Qualifiers: Urinary tract infection type: acute cystitis Hematuria presence: without rimma turia Qualified Code(s): N30.00 - Acute cystitis without hematuria Prescriptions: cephALEXin [Keflex] 500 mg PO Q8H #21 cap Instructions: Dehydration, Adult, [id number], Urinary Tract Infection, Adult, [id number] Referrals: Chirag Freitas PA-C [Primary Care Provider] - Forms: ED Department Discharge Additional Instructions: Get the prescriptions filled tomorrow and start taking the antibiotics, continue to drink lots of fluids, call your surgeon on Thursday and inquire as to why you do not seem to be absorbing fluids through your GI tract since you are drinking enough water and yet your urine is very concentrated and you are having positive orthostatic vital signs and a return to the ER if needed Sepsis Event Note (ED) - Evaluation Sepsis Screening Result: No Definite Risk - Focused Exam Vital Signs: Vital Signs Temp Pulse Resp BP Pulse Ox 02/24/20 22:37 98.2 F 91 16 133/88 100 - My Orders Last 24 Hours: My Active Orders 02/24/20 22:54 Orthostatic Vital Signs [RC] ASDIRECTED 02/24/20 23:45 Sodium Chloride 0.9% [Normal Saline] 1,000 ml IV ASDIRECTED - Assessment/Plan Last 24 Hours: My Active Orders 02/24/20 22:54 Orthostatic Vital Signs [RC] ASDIRECTED 02/24/20 23:45 Sodium Chloride 0.9% [Normal Saline] 1,000 ml IV ASDIRECTED
[2020-02-24] MEDS ORDERED: Sodium Chloride 0.9% 1,000 ML IV SCH (23:45)
== END 2020-02-25 03:22 | disposition home or self-care (01) ==
LOC: JD.ED 21:28
DX: E86.0 Dehydration (principal); N30.00 Acute cystitis without hematuria; E11.9 Type 2 diabetes mellitus without complications; F17.210 Nicotine dependence, cigarettes, uncomplicated; E66.9 Obesity, unspecified; Z68.42 Body mass index [BMI] 45.0-49.9, adult
CPT/HCPCS: 36415; 80053; 81001; 84443; 84703; 85025; 96360; 99284; J7030; 99283

== ENCOUNTER 2020-04-01 13:30 | Emergency (ER) | payer MEDICAID ==
--- NOTE | 2020-04-01 13:59 | EDM.PDOC ---
ED HPI GENERAL MEDICAL PROBLEM - General Chief Complaint: Upper Extremity Injury/Pain Stated Complaint: RT HAND INJURY Time Seen by Provider: 04/01/20 13:42 Source of Information: Reports: Patient History Limitations: Reports: No Limitations - History of Present Illness INITIAL COMMENTS - FREE TEXT/NARRATIVE: The patient presents with right forearm pain. She fell on the and she was seen at the walk in clinic. She had more pain in her hand at that time. The x- rays looked good. She was told to come and be evaluated again if the pian is not better. The pain is now in her right forearm. She has no pain in her hand. She is right handed. 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: Neurological History: Reports: Headaches, Chronic Psychiatric History: Reports: Anxiety, Bipolar, Depression Endocrine/Metabolic History: Reports: Diabetes, Type II, Obesity/BMI 30+ - Past Surgical History HEENT Surgical History: Reports: Adenoidectomy, Oral Surgery, Tonsillectomy GI Surgical History: Reports: Bariatric Procedure, Other (See Below) Other GI Surgeries/Procedures: gastric sleeve Female Surgical History: Reports: D&C, Tubal Ligation Endocrine Surgical History: Reports: Thyroidectomy Social & Family History - Family History Family Medical History: Noncontributory - Tobacco Use Tobacco Use Status *Q: Never Tobacco User - Caffeine Use Caffeine Use: Reports: None - Living Situation & Occupation Living situation: Reports: , with Significant Other (Boyfriend), with Family (Daughter) Occupation: Unemployed Review of Systems - Review of Systems Review Of Systems: See Below Constitutional: Reports: No Symptoms Eyes: Reports: No Symptoms Ears: Reports: No Symptoms Nose: Reports: No Symptoms Mouth/Throat: Reports: No Symptoms Respiratory: Reports: No Symptoms Cardiovascular: Reports: No Symptoms GI/Abdominal: Reports: No Symptoms Genitourinary: Reports: No Symptoms Musculoskeletal: Reports: Other (right forearm pain) ED EXAM, GENERAL - Physical Exam Exam: See Below Exam Limited By: No Limitations General Appearance: Alert, No Apparent Distress Ears: Normal External Exam Nose: Normal Inspection Head: Atraumatic, Normocephalic Neck: Normal Inspection Respiratory/Chest: No Respiratory Distress Extremities: Other (pain upon palpation to the right forearm with no pain to the right wrist or hand. Good sensation and pulses distally.) Course - Vital Signs Last Recorded V/S: Last Vital Signs Temp 97.9 F 04/01/20 13:40 Pulse 100 04/01/20 13:40 Resp 16 04/01/20 13:40 BP 144/89 H 04/01/20 13:40 Pulse Ox 98 04/01/20 13:40 - Orders/Labs/Meds Orders: Active Orders 24 hr Category Date Time Status Forearm 2V Rt [CR] Stat Exams 04/01/20 13:47 Taken Durable Medical Equipment for Discharge [DME for Oth 04/01/20 14:10 Ordered Discharge] [COMM] Stat - Re-Assessments/Exams Free Text/Narrative Re-Assessment/Exam: 04/01/20 14:01 I have ordered an x-ray of her forearm. 04/01/20 14:16 The x-ray of her forearm looks good. I will get her one of out braces and see if that helps. Departure - Departure Time of Disposition: 14:30 Disposition: Home, Self-Care 01 Condition: Good Clinical Impression: Sprain of right forearm Qualifiers: Encounter type: initial encounter Qualified Code(s): S63.501A - Unspecified sprain of right wrist, initial encounter - Discharge Information *PRESCRIPTION DRUG MONITORING PROGRAM REVIEWED*: Not Applicable *COPY OF PRESCRIPTION DRUG MONITORING REPORT IN PATIENT NIKIA: Not Applicable Referrals: Chirag Freitas PA-C [Primary Care Provider] - 1 Week Forms: ED Department Discharge, ED Return to Work/School Form Additional Instructions: Take motrin or tylenol for pain. Try ice or heat which ever one feels better. Follow up with Chirag Freitas or physical therapy. Please return if you are worse. Sepsis Event Note (ED) - Evaluation Sepsis Screening Result: No Definite Risk - Focused Exam Vital Signs: Vital Signs Temp Pulse Resp BP Pulse Ox 04/01/20 13:40 97.9 F 100 16 144/89 H 98 - My Orders Last 24 Hours: My Active Orders 04/01/20 13:47 Forearm 2V Rt [CR] Stat 04/01/20 14:10 Durable Medical Equipment for Discharge [DME for Discharge] [COMM] Stat - Assessment/Plan Last 24 Hours: My Active Orders 04/01/20 13:47 Forearm 2V Rt [CR] Stat 04/01/20 14:10 Durable Medical Equipment for Discharge [DME for Discharge] [COMM] Stat
--- NOTE | 2020-04-02 10:14 | CR ---
PROCEDURE INFORMATION: Exam: XR Right Forearm Exam date and time: 04/01/2020 1:52 PM Age: 29 years old Clinical indication: Other: Fall, right forearm pain TECHNIQUE: Imaging protocol: XR Right forearm. Views: 2 views. COMPARISON: No relevant prior studies available. FINDINGS: Bones/joints: Multiple views of the right forearm demonstrate no evidence for fracture. Wrist and elbow joints are intact. Soft tissues: Normal. IMPRESSION: 1. Normal appearance of the right forearm. Thank you for allowing us to participate in the care of your patient. Dictated and Authenticated by: Jamar Sheehan MD 04/01/2020 3:10 PM Central Time ([place] & [place]) MEGHAN
== END 2020-04-01 14:34 | disposition home or self-care (01) ==
LOC: JD.ED 13:30
DX: S59.811A Other specified injuries right forearm, initial encounter (principal); J45.909 Unspecified asthma, uncomplicated; E11.9 Type 2 diabetes mellitus without complications; E66.9 Obesity, unspecified; Z68.39 Body mass index [BMI] 39.0-39.9, adult; W19.XXXA Unspecified fall, initial encounter
CPT/HCPCS: 73090-26-RT; 73090-RT; 99283-25

== ENCOUNTER 2020-06-16 17:06 | Emergency (ER) | payer MEDICAID ==
[2020-06-16] MEDS ORDERED: Metoclopramide 10 MG/2 ML SDV IVPUSH ONE (17:55)
[2020-06-16] MEDS ORDERED: diphenhydrAMINE 50 MG/ML SDV IVPUSH ONE (17:55)
[2020-06-16] MEDS ORDERED: Sodium Chloride 0.9% 10 ML Syringe FLUSH PRN (17:57)
[2020-06-16] MEDS ORDERED: Ketorolac 30 MG/ML SDV IVPUSH SCH (18:00)
[2020-06-16] MEDS ORDERED: Sodium Chloride 0.9% 1,000 ML IV SCH (18:00)
--- NOTE | 2020-06-16 18:17 | EDM.PDOC ---
ED HPI GENERAL MEDICAL PROBLEM - General Chief Complaint: Headache Stated Complaint: HEADACHE/VOMITING Time Seen by Provider: 06/16/20 17:27 Source of Information: Reports: Patient, RN Notes Reviewed - History of Present Illness INITIAL COMMENTS - FREE TEXT/NARRATIVE: 29 yr old female with onset of Hi about 6 days ago that has not gone away. Has had 2 episodes of nausea and vomiting. Hi is generalized, throbbing, similar to prior headaches. No recent fever, chills, cough, chest or abd pain. Right Headache Pain Score (Numeric/FACES): 9 - Related Data Allergies Allergy/AdvReac Type Severity Reaction Status Date / Time No Known Allergies Allergy Verified 06/16/20 17:14 Home Meds: Home Meds . 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: Neurological History: Reports: Headaches, Chronic Psychiatric History: Reports: Anxiety, Bipolar, Depression Endocrine/Metabolic History: Reports: Diabetes, Type II, Obesity/BMI 30+ - Past Surgical History HEENT Surgical History: Reports: Adenoidectomy, Oral Surgery, Tonsillectomy GI Surgical History: Reports: Bariatric Procedure, Other (See Below) Other GI Surgeries/Procedures: gastric sleeve Female Surgical History: Reports: D&C, Tubal Ligation Endocrine Surgical History: Reports: Thyroidectomy Social & Family History - Family History Family Medical History: No Pertinent Family History - Tobacco Use Tobacco Use Status *Q: Current Every Day Tobacco User Years of Tobacco use: 10 Packs/Tins Daily: 0.5 - Caffeine Use Caffeine Use: Reports: None - Recreational Drug Use Recreational Drug Use: No - Living Situation & Occupation Living situation: Reports: , with Significant Other (Boyfriend), with Family (Daughter) Occupation: Unemployed ED ROS GENERAL - Review of Systems Review Of Systems: See Below Constitutional: Denies: Fever, Chills, Diaphoresis HEENT: Denies: Sinus Problem, Throat Pain Respiratory: Denies: Shortness of Breath, Cough GI/Abdominal: Reports: Nausea, Vomiting. Denies: Abdominal Pain, Diarrhea Musculoskeletal: Reports: Neck Pain (mild) Skin: Denies: Rash Neurological: Denies: Trouble Speaking, Difficulty Walking, Weakness - Physical Exam Exam: See Below General Appearance: Alert, No Apparent Distress Eye Exam: Bilateral Eye: PERRL Nose: Normal Inspection Throat/Mouth: Normal Inspection, Normal Oropharynx Head Exam: Atraumatic Neck: Supple, Non-Tender Respiratory/Chest: No Respiratory Distress, Lungs Clear, Normal Breath Sounds Cardiovascular: Regular Rate, Rhythm Neuro Exam (Abbreviated): Alert, Oriented, No Motor/Sensory Deficits, Other (no drift, finger to nose normal) Extremities: Normal Inspection, Normal Range of Motion Skin Exam: Warm, Dry, Normal Color, No Rash Course - Vital Signs Last Recorded V/S: Last Vital Signs Temp 97 F 06/16/20 17:13 Pulse 83 06/16/20 17:13 Resp 16 06/16/20 17:13 BP 127/85 06/16/20 17:13 Pulse Ox 98 06/16/20 17:13 - Orders/Labs/Meds Orders: Active Orders 24 hr Category Date Time Status Peripheral IV Care [RC] . DIRECTED Care 06/16/20 17:58 Active Ketorolac [Toradol] Med 06/16/20 18:00 Active 30 mg IVPUSH ONETIME Sodium Chloride 0.9% [Normal Saline] 1,000 ml Med 06/16/20 18:00 Active IV ONETIME Sodium Chloride 0.9% [Saline Flush] Med 06/16/20 17:57 Active 10 ml FLUSH ASDIRECTED PRN Peripheral IV Insertion Adult [OM.PC] Stat Oth 06/16/20 17:55 Ordered Medication Orders Sodium Chloride (Normal Saline) 1,000 mls @ 999 mls/hr IV ONETIME ELKIN Last Admin: 06/16/20 18:05 Dose: 999 mls/hr Documented by: NEAL Ketorolac Tromethamine (Toradol) 30 mg IVPUSH ONETIME ELKIN Last Admin: 06/16/20 18:07 Dose: 30 mg Documented by: NEAL Sodium Chloride (Saline Flush) 10 ml FLUSH ASDIRECTED PRN PRN Reason: Keep Vein Open Last Admin: 06/16/20 18:05 Dose: 10 ml Documented by: NEAL Labs: Laboratory Tests 06/16/20 06/16/20 Range/Units 17:20 17:20 WBC 10.73 H (3.98-10.04) K/mm3 RBC 4.78 (3.98-5.22) M/mm3 Hgb 14.0 (11.2-15.7) gm/dl Hct 43.1 (34.1-44.9) % MCV 90.2 (79.4-94.8) fl MCH 29.3 (25.6-32.2) pg MCHC 32.5 (32.2-35.5) g/dl RDW Std Deviation 41.7 (36.4-46.3) fL Plt Count 298 (182-369) K/mm3 MPV 10.6 (9.4-12.3) fl Neut % (Auto) 61.6 (34.0-71.1) % Lymph % (Auto) 29.3 (19.3-51.7) % [place] % (Auto) 5.6 (4.7-12.5) % Eos % (Auto) 3.1 (0.7-5.8) Baso % (Auto) 0.2 (0.1-1.2) % Neut # (Auto) 6.62 H (1.56-6.13) K/mm3 Lymph # (Auto) 3.14 (1.18-3.74) K/mm3 [place] # (Auto) 0.60 H (0.24-0.36) K/mm3 Eos # (Auto) 0.33 (0.04-0.36) K/mm3 Baso # (Auto) 0.02 (0.01-0.08) K/mm3 Sodium 142 (136-145) mEq/L Potassium 4.1 (3.5-5.1) mEq/L Chloride 104 (98-107) mEq/L Carbon Dioxide 25 (21-32) mEq/L Anion Gap 17.1 H (5-15) BUN 12 (7-18) mg/dL Creatinine 0.7 (0.55-1.02) mg/dL Est Cr Clr Drug Dosing 121.78 mL/min Estimated GFR (MDRD) > 60 (>60) mL/min BUN/Creatinine Ratio 17.1 (14-18) Glucose 93 (74-106) mg/dL Calcium 8.8 (8.5-10.1) mg/dL Total Bilirubin 0.4 (0.2-1.0) mg/dL AST 21 (15-37) U/L ALT 27 (14-59) U/L Alkaline Phosphatase 75 (46-116) U/L Total Protein 7.8 (6.4-8.2) g/dl Albumin 3.6 (3.4-5.0) g/dl Globulin 4.2 gm/dL Albumin/Globulin Ratio 0.9 L (1-2) Meds: Medications Generic Name Dose Route Start Last Admin Trade Name Freq PRN Reason Stop Dose Admin Sodium Chloride 1,000 mls @ 999 mls/hr 06/16/20 18:00 06/16/20 18:05 Normal Saline IV 999 mls/hr ONETIME ELKIN Administration Ketorolac Tromethamine 30 mg 06/16/20 18:00 06/16/20 18:07 Toradol IVPUSH 30 mg ONETIME ELKIN Administration Sodium Chloride 10 ml 06/16/20 17:57 06/16/20 18:05 Saline Flush FLUSH 10 ml ASDIRECTED PRN Administration Keep Vein Open Discontinued Medications Generic Name Dose Route Start Last Admin Trade Name Freq PRN Reason Stop Dose Admin Diphenhydramine HCl 50 mg 06/16/20 17:55 06/16/20 18:07 Benadryl IVPUSH 06/16/20 17:56 50 mg ONETIME ONE Administration Metoclopramide HCl 5 mg 06/16/20 17:55 06/16/20 18:05 Reglan IVPUSH 06/16/20 17:56 5 mg ONETIME ONE Administration - Re-Assessments/Exams Free Text/Narrative Re-Assessment/Exam: 06/16/20 18:49 Hi is much better after IV benadry, torodol and reglan and IV fluid. CBC nl, anion gap very mildly elevated, chem. otherwise nl. Departure - Departure Time of Disposition: 18:50 Disposition: Home, Self-Care 01 Condition: Fair Clinical Impression: Migraine - Discharge Information Referrals: Chirag Freitas PA-C [Primary Care Provider] - Forms: ED Department Discharge Additional Instructions: Rest, you may take tylenol, ibuprofenj or aleve if needed for further headache. No driving until morning due to sedative medication given here in the ED. Follow up clinic if symptoms not resolving. Return to ED as needed if symptoms worsening in any way. Sepsis Event Note (ED) - Evaluation Sepsis Screening Result: No Definite Risk - Focused Exam Vital Signs: Vital Signs Temp Pulse Resp BP Pulse Ox 06/16/20 17:13 97 F 83 16 127/85 98 - My Orders Last 24 Hours: My Active Orders 06/16/20 17:55 Peripheral IV Insertion Adult [OM.PC] Stat 06/16/20 17:57 Sodium Chloride 0.9% [Saline Flush] 10 ml FLUSH ASDIRECTED PRN 06/16/20 17:58 Peripheral IV Care [RC] . DIRECTED 06/16/20 18:00 Ketorolac [Toradol] 30 mg IVPUSH ONETIME Sodium Chloride 0.9% [Normal Saline] 1,000 ml IV ONETIME - Assessment/Plan Last 24 Hours: My Active Orders 06/16/20 17:55 Peripheral IV Insertion Adult [OM.PC] Stat 06/16/20 17:57 Sodium Chloride 0.9% [Saline Flush] 10 ml FLUSH ASDIRECTED PRN 06/16/20 17:58 Peripheral IV Care [RC] . DIRECTED 06/16/20 18:00 Ketorolac [Toradol] 30 mg IVPUSH ONETIME Sodium Chloride 0.9% [Normal Saline] 1,000 ml IV ONETIME
== END 2020-06-16 19:07 | disposition home or self-care (01) ==
LOC: JD.ED 17:06
DX: G43.909 Migraine, unspecified, not intractable, without status migrainosus (principal); J45.909 Unspecified asthma, uncomplicated; E11.9 Type 2 diabetes mellitus without complications; E66.9 Obesity, unspecified; Z72.0 Tobacco use; Z68.36 Body mass index [BMI] 36.0-36.9, adult
CPT/HCPCS: 36415; 80053; 85025; 96374; 96375; 99284; J1200; J1885; J2765; J7030; 99283

== ENCOUNTER 2020-09-02 20:22 | Emergency (ER) | payer MEDICAID ==
[2020-09-02] MEDS ORDERED: methylPREDNISolone Sodium Succinate 125 MG/2 ML SDV IVPUSH ONE (20:40)
--- NOTE | 2020-09-02 22:58 | EDM.PDOC ---
ED HPI GENERAL MEDICAL PROBLEM - General Chief Complaint: Allergic Reaction Stated Complaint: ALLERGIC REACTION Time Seen by Provider: 09/02/20 20:24 Source of Information: Reports: Patient History Limitations: Reports: No Limitations - History of Present Illness INITIAL COMMENTS - FREE TEXT/NARRATIVE: About an hour or so prior to presentation the patient had a pruritic rash br eakout on her limbs and torso. It is apparently allergic but she has no idea what might have provoked it. She has never had this kind of reaction before. There is been no shortness of breath. No wheezing. No change in vocal quality. Only substantial risk factor is cigarette smoking. There is been no fever respiratory difficulty cough nausea vomiting diarrhea urinary symptoms or any other symptom of acute medical illness. 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: Neurological History: Reports: Headaches, Chronic Psychiatric History: Reports: Anxiety, Bipolar, Depression Endocrine/Metabolic History: Reports: Diabetes, Type II, Obesity/BMI 30+ - Past Surgical History HEENT Surgical History: Reports: Adenoidectomy, Oral Surgery, Tonsillectomy GI Surgical History: Reports: Bariatric Procedure, Other (See Below) Other GI Surgeries/Procedures: gastric sleeve Female Surgical History: Reports: D&C, Tubal Ligation Endocrine Surgical History: Reports: Thyroidectomy Social & Family History - Family History Family Medical History: No Pertinent Family History - Tobacco Use Tobacco Use Status *Q: Current Every Day Tobacco User Years of Tobacco use: 8 Packs/Tins Daily: 0.2 - Caffeine Use Caffeine Use: Reports: Energy Drinks, Soda - Recreational Drug Use Recreational Drug Use: No - Living Situation & Occupation Living situation: Reports: , with Significant Other (Boyfriend), with Family (Daughter) Occupation: Unemployed ED ROS ALLERGIC REACTION - Review of Systems Review Of Systems: Comprehensive ROS is negative, except as noted in HPI. ED EXAM GENERAL NO PERIP PULSE - Physical Exam Exam: See Below Text/Narrative:: On exam the patient is alert and in no distress. Skin is warm dry with normal turgor. Head normocephalic atraumatic. ENT unremarkable. Throat is noted to be absolutely normal without edema or erythema. There is no vocal stridor. Neck is supple without jugular venous distention. Lungs are clear breath sounds are full and equal bilaterally. Heart is regular. Abdomen is soft nontender. There is no flank tenderness. There is no peripheral edema cyanosis or clubbing of the digits. Neurologically she is grossly intact with fluent speech and no sensory or motor deficit. Her mood and affect are appropriate. She is composed and pleasant. There is a macular patchy rash on the limbs and torso. There is no excoriation. No sign of infection. Course - Vital Signs Text/Narrative:: The patient has received Solu-Medrol. Later in the encounter the rashes all but completely disappeared. There was never any wheezing stridor or any other troubling symptom. Patient was cautioned about allergens and need to come to the ER immediately please see instructions below. She was urged to stop smoking cigarettes. Last Recorded V/S: Last Vital Signs Temp 36.5 C 09/02/20 20:33 Pulse 96 09/02/20 20:33 Resp 20 09/02/20 20:33 BP 135/80 09/02/20 20:33 Pulse Ox 100 09/02/20 20:33 - Orders/Labs/Meds Meds: Medications Discontinued Medications Generic Name Dose Route Start Last Admin Trade Name Freq PRN Reason Stop Dose Admin Methylprednisolone Sodium Succinate 125 mg 09/02/20 20:40 09/02/20 21:51 Methylprednisolone Sodium Succinate 125 Mg/2 Ml Sdv IVPUSH 09/02/20 20:41 125 mg ONETIME ONE Administration Departure - Departure Time of Disposition: 22:57 Disposition: Home, Self-Care 01 Condition: Good Clinical Impression: Allergic dermatitis - Discharge Information Referrals: Chirag Freitas PA-C [Primary Care Provider] - Additional Instructions: You have been seen for an allergic dermatitis. This is an eruption of a rash on your skin secondary to something you are allergic to. As there is no idea what you are allergic to you need to be observant and tried a figure out what might of done this. In the event you have a recurrence of an allergic response with shortness of breath change in vocal quality or any other troubling symptom please return to the ER immediately. Notify your primary physician of this visit and arrange follow-up as directed. Sepsis Event Note (ED) - Evaluation Sepsis Screening Result: No Definite Risk - Focused Exam Vital Signs: Vital Signs Temp Pulse Resp BP Pulse Ox 09/02/20 20:33 36.5 C 96 20 135/80 100
== END 2020-09-02 23:09 | disposition home or self-care (01) ==
LOC: JD.ED 20:22
DX: L23.9 Allergic contact dermatitis, unspecified cause (principal); J45.909 Unspecified asthma, uncomplicated; E11.9 Type 2 diabetes mellitus without complications; E66.9 Obesity, unspecified; Z68.36 Body mass index [BMI] 36.0-36.9, adult; Z72.0 Tobacco use
CPT/HCPCS: 96374; 99283; J2930

== ENCOUNTER 2020-12-26 20:20 | Emergency (ER) | payer MEDICAID ==
[2020-12-26] MEDS ORDERED: Acetaminophen/HYDROcodone 325-5 MG Tab PO ONE (21:02)
--- NOTE | 2020-12-26 21:06 | EDM.PDOC ---
ED HPI GENERAL MEDICAL PROBLEM - General Chief Complaint: Upper Extremity Injury/Pain Stated Complaint: LT WRIST INJURY Time Seen by Provider: 12/26/20 20:27 Source of Information: Reports: Patient, RN Notes Reviewed History Limitations: Reports: No Limitations - History of Present Illness INITIAL COMMENTS - FREE TEXT/NARRATIVE: Patient is a 30-year-old female presenting to the emergency department with complaints of left wrist pain. Reports that she was carrying a chair up some stairs and her wrist came pinned between the door frame in the chair. Reports burning pain radiating up her forearm. Denies any previous injuries to this extremity. 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: Neurological History: Reports: Headaches, Chronic Psychiatric History: Reports: Anxiety, Bipolar, Depression Endocrine/Metabolic History: Reports: Diabetes, Type II, Obesity/BMI 30+ - Past Surgical History HEENT Surgical History: Reports: Adenoidectomy, Oral Surgery, Tonsillectomy GI Surgical History: Reports: Bariatric Procedure, Other (See Below) Other GI Surgeries/Procedures: gastric sleeve Female Surgical History: Reports: D&C, Tubal Ligation Endocrine Surgical History: Reports: Thyroidectomy Social & Family History - Family History Family Medical History: No Pertinent Family History - Tobacco Use Tobacco Use Status *Q: Unknown Ever Used Tobacco - Caffeine Use Caffeine Use: Reports: Energy Drinks, Soda - Living Situation & Occupation Living situation: Reports: , with Significant Other (Boyfriend), with Family (Daughter) Occupation: Unemployed Review of Systems - Review of Systems Review Of Systems: Comprehensive ROS is negative, except as noted in HPI. ED EXAM, GENERAL - Physical Exam Exam: See Below General Appearance: Alert, WD/WN, No Apparent Distress Respiratory/Chest: No Respiratory Distress, Lungs Clear, Normal Breath Sounds, No Accessory Muscle Use, Chest Non-Tender Cardiovascular: Normal Peripheral Pulses, Regular Rate, Rhythm, No Edema, No Gallop, No JVD, No Murmur, No Rub Extremities: Normal Inspection, Normal Range of Motion, Non-Tender, No Pedal Edema, Normal Capillary Refill, Other (No edema, ecchymosis, or deformity to left wrist) Neurological: Alert, Oriented, CN II-XII Intact, Normal Cognition, Normal Gait, Normal Reflexes, No Motor/Sensory Deficits Psychiatric: Normal Affect, Normal Mood Skin Exam: Warm, Dry, Intact, Normal Color, No Rash Course - Vital Signs Last Recorded V/S: Last Vital Signs Temp 98.8 F 12/26/20 20:31 Pulse 82 12/26/20 20:31 Resp 14 12/26/20 20:31 BP 145/92 H 12/26/20 20:31 Pulse Ox 100 12/26/20 20:31 - Orders/Labs/Meds Orders: Active Orders 24 hr Category Date Time Status Wrist Comp Min 3V Lt [CR] Stat Exams 12/26/20 20:30 Ordered Acetaminophen/HYDROcodone [[place] 325-5 MG] Med 12/26/20 21:02 Once 1 tab PO ONETIME ONE DME for Discharge [COMM] Routine Oth 12/26/20 21:01 Ordered - Re-Assessments/Exams Free Text/Narrative Re-Assessment/Exam: Patient is a 30-year-old female presenting to the emergency department complaints of left wrist pain after it became pinned between a door frame in a chair. On exam, she has mild tenderness over the distal radius. There is no redness, ecchymosis, swelling, or deformity. I have ordered x-rays of the left wrist. 12/26/20 21:03 The left wrist shows no fractures. Patient will be provided a Velcro wrist splint to stabilize the joint. She will be given a single hydrocodone with Tylenol in the emergency department. Recommend ice, elevation, and Tylenol or ibuprofen as needed for pain. Discharge instructions as documented. Departure - Departure Time of Disposition: 21:04 Disposition: Home, Self-Care 01 Condition: Good Clinical Impression: Wrist contusion Qualifiers: Encounter type: initial encounter Laterality: left Qualified Code(s): S60.212A - Contusion of left wrist, initial encounter - Discharge Information *PRESCRIPTION DRUG MONITORING PROGRAM REVIEWED*: No *COPY OF PRESCRIPTION DRUG MONITORING REPORT IN PATIENT NIKIA: No Instructions: Contusion, [id number] Referrals: Chirag Freitas PA-C [Primary Care Provider] - Additional Instructions: You were seen in the emergency department today for pain to your left wrist. X- rays are completed and show no fracture. You have been provided with a Velcro wrist splint. Recommend wearing this for the next few days. Once the pain improves, you may remove it. Recommend ice and elevation for the next few days. You may use [id number] Tylenol or ibuprofen as needed for discomfort. If you have not returned to normal within 10 days, recommend follow-up in the clinic. Return to ER as needed. Sepsis Event Note (ED) - Evaluation Sepsis Screening Result: No Definite Risk - Focused Exam Vital Signs: Vital Signs Temp Pulse Resp BP Pulse Ox 12/26/20 20:31 98.8 F 82 14 145/92 H 100 - My Orders Last 24 Hours: My Active Orders 12/26/20 20:30 Wrist Comp Min 3V Lt [CR] Stat 12/26/20 21:01 DME for Discharge [COMM] Routine 12/26/20 21:02 Acetaminophen/HYDROcodone [[place] 325-5 MG] 1 tab PO ONETIME ONE - Assessment/Plan Last 24 Hours: My Active Orders 12/26/20 20:30 Wrist Comp Min 3V Lt [CR] Stat 12/26/20 21:01 DME for Discharge [COMM] Routine 12/26/20 21:02 Acetaminophen/HYDROcodone [[place] 325-5 MG] 1 tab PO ONETIME ONE
--- NOTE | 2020-12-27 07:50 | CR ---
Left wrist: 4 views of the left wrist were obtained. Comparison: No prior wrist exam is available. Joint spaces within the left wrist are maintained. No acute fracture, dislocation or other bony abnormality is appreciated. Impression: 1. Nothing acute is seen on left wrist exam. Diagnostic code #1
== END 2020-12-26 21:19 | disposition home or self-care (01) ==
LOC: JD.ED 20:20
DX: S60.212A Contusion of left wrist, initial encounter (principal); E11.9 Type 2 diabetes mellitus without complications; E66.9 Obesity, unspecified; Z68.37 Body mass index [BMI] 37.0-37.9, adult; W23.0XXA Caught, crushed, jammed, or pinched between moving objects, initial encounter
CPT/HCPCS: 73110; 99283; A9270

== ENCOUNTER 2021-01-16 21:05 | Emergency (ER) | payer MEDICAID ==
[2021-01-16] MEDS ORDERED: HYDROmorphone 1 MG/ML Syringe IM ONE (22:04)
--- NOTE | 2021-01-16 22:55 | EDM.PDOC ---
ED HPI GENERAL MEDICAL PROBLEM - General Chief Complaint: General Stated Complaint: POST THYROID SURGERY SWELLING AND NOT DRAINING Time Seen by Provider: 01/16/21 21:50 Source of Information: Reports: Patient, RN Notes Reviewed - History of Present Illness INITIAL COMMENTS - FREE TEXT/NARRATIVE: 30 yr old female had L lobe of thyroid taken out yesterday AM by Abelardo Palomares. Discharge home this afternoon. Having a lot of pain entire incision area of ant. neck. Mild swelling. She states it feels warm. Concerned that drain tube is not working but it is draining this evening just not as much as earlier today or yesterday. No fever, chills, chest pain or difficulty breathing. 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: Neurological History: Reports: Headaches, Chronic Psychiatric History: Reports: Anxiety, Bipolar, Depression Endocrine/Metabolic History: Reports: Diabetes, Type II, Obesity/BMI 30+ - Past Surgical History HEENT Surgical History: Reports: Adenoidectomy, Oral Surgery, Tonsillectomy GI Surgical History: Reports: Bariatric Procedure, Other (See Below) Other GI Surgeries/Procedures: gastric sleeve Female Surgical History: Reports: D&C, Tubal Ligation Endocrine Surgical History: Reports: Thyroidectomy Social & Family History - Family History Family Medical History: No Pertinent Family History - Tobacco Use Tobacco Use Status *Q: Current Every Day Tobacco User Years of Tobacco use: 2 Packs/Tins Daily: 0.3 - Caffeine Use Caffeine Use: Reports: Energy Drinks, Soda - Recreational Drug Use Recreational Drug Use: No - Living Situation & Occupation Living situation: Reports: , with Significant Other (Boyfriend), with Family (Daughter) Occupation: Unemployed ED ROS GENERAL - Review of Systems Review Of Systems: See Below Constitutional: Denies: Fever, Chills HEENT: Reports: Other (Ant neck pain) Respiratory: Denies: Shortness of Breath, Wheezing, Cough Cardiovascular: Denies: Chest Pain GI/Abdominal: Denies: Abdominal Pain, Nausea, Vomiting Musculoskeletal: Denies: Shoulder Pain, Arm Pain, Back Pain Neurological: Reports: No Symptoms ED EXAM, GENERAL - Physical Exam Exam: See Below General Appearance: Alert, Anxious, Mild Distress Head: Atraumatic. No: Facial Swelling Neck: Other (horizontal incision across lower ant neck, mild localized swelling, no drainage, slight erythema only, vacuum drainage tube R margin of incision with small amt of pink drainage in tube) Respiratory/Chest: No Respiratory Distress, Lungs Clear, Normal Breath Sounds Cardiovascular: Regular Rate, Rhythm Extremities: Normal Inspection, Normal Range of Motion Neurological: Alert, Oriented, No Motor/Sensory Deficits Skin Exam: Warm, Dry, Normal Color Course - Vital Signs Last Recorded V/S: Last Vital Signs Temp 98.1 F 01/16/21 21:24 Pulse 78 01/16/21 21:24 Resp 18 01/16/21 21:24 BP 140/80 01/16/21 21:24 Pulse Ox 97 01/16/21 21:24 - Orders/Labs/Meds Meds: Medications Discontinued Medications Generic Name Dose Route Start Last Admin Trade Name Dianelys PRN Reason Stop Dose Admin Hydromorphone HCl 1 mg 01/16/21 22:04 01/16/21 22:23 Hydromorphone 1 Mg/Ml Syringe IM 01/16/21 22:05 1 mg ONETIME ONE Administration Departure - Departure Time of Disposition: 22:55 Disposition: Home, Self-Care 01 Condition: Fair Clinical Impression: Post-operative pain, Neck pain - Discharge Information Referrals: Chirag Freitas PA-C [Primary Care Provider] - Forms: ED Department Discharge Additional Instructions: You have been given dilaudid 1 mg IM. Continue to massage tube to encourage drainage. Continue hydrocodone after 4 to 6 AM if needed for further pain relief. Keep head and neck elevated above chest. See Dr Young or Dr Marrero tomorrow if not better. Also call Dr Sandoval's office during regular hours as needed. Sepsis Event Note (ED) - Evaluation Sepsis Screening Result: No Definite Risk - Focused Exam Vital Signs: Vital Signs Temp Pulse Resp BP Pulse Ox 01/16/21 21:24 98.1 F 78 18 140/80 97
== END 2021-01-16 23:05 | disposition home or self-care (01) ==
LOC: JD.ED 21:05
DX: G89.18 Other acute postprocedural pain (principal); M54.2 Cervicalgia; E11.9 Type 2 diabetes mellitus without complications; E66.9 Obesity, unspecified; Z68.30 Body mass index [BMI] 30.0-30.9, adult; Z72.0 Tobacco use
CPT/HCPCS: 96372; 99283; J1170

== ENCOUNTER 2021-08-14 17:13 | Emergency (ER) | payer MEDICAID ==
[2021-08-14] MEDS ORDERED: Acetaminophen/oxyCODONE 325-5 MG Tab PO ONE (17:55)
[2021-08-14] MEDS ORDERED: Phenazopyridine 95 MG Tab PO ONE (18:18)
== END 2021-08-14 18:50 | disposition home or self-care (01) ==
LOC: JD.ED 17:13
DX: N30.00 Acute cystitis without hematuria (principal); E11.9 Type 2 diabetes mellitus without complications; E66.9 Obesity, unspecified; Z68.30 Body mass index [BMI] 30.0-30.9, adult; Z72.0 Tobacco use
CPT/HCPCS: 81001; 87086; 99283; A9270

== ENCOUNTER 2021-10-17 20:18 | Emergency (ER) | payer MEDICAID | END 2021-10-17 21:15 | disposition home or self-care (01) | LOC: JD.ED 20:18 | DX: N39.0 Urinary tract infection, site not specified (principal); E11.9 Type 2 diabetes mellitus without complications; E66.9 Obesity, unspecified; Z68.33 Body mass index [BMI] 33.0-33.9, adult; Z79.899 Other long term (current) drug therapy | CPT/HCPCS: 81001; 87086; 87088; 87186; 99284 ==

== ENCOUNTER 2021-10-23 15:07 | Emergency (ER) | payer MEDICAID ==
[2021-10-23] MEDS ORDERED: Lidocaine 1% 10 ML MDV INJECT ONE (15:27)
[2021-10-23] MEDS ORDERED: Diphtheria,Pertussis(Acell),Tetanus Vaccine 0.5 ML Syringe IM ONE (15:27)
[2021-10-23] MEDS ORDERED: Lidocaine 1% 20 ML MDV INJECT ONE (15:31)
[2021-10-23] MEDS ORDERED: Lidocaine 1% 10 ML MDV ONE (15:37)
== END 2021-10-23 16:10 | disposition home or self-care (01) ==
LOC: JD.ED 15:07
DX: S61.412A Laceration without foreign body of left hand, initial encounter (principal); E11.9 Type 2 diabetes mellitus without complications; F17.210 Nicotine dependence, cigarettes, uncomplicated; E66.9 Obesity, unspecified; Z68.33 Body mass index [BMI] 33.0-33.9, adult; Z23 Encounter for immunization; W26.8XXA Contact with other sharp object(s), not elsewhere classified, initial encounter
CPT/HCPCS: 12001; 90471; 90715; 99282-25

== ENCOUNTER 2022-08-04 21:00 | Emergency (ER) | payer MEDICAID ==
[2022-08-04] MEDS ORDERED: Cefdinir 300 MG Cap PO ONE (21:22)
== END 2022-08-04 22:00 | disposition home or self-care (01) ==
LOC: JD.ED 21:00
DX: N30.01 Acute cystitis with hematuria (principal); E11.9 Type 2 diabetes mellitus without complications; E66.9 Obesity, unspecified; Z68.35 Body mass index [BMI] 35.0-35.9, adult; Z72.0 Tobacco use
CPT/HCPCS: 81001; 87086; 99283; 99284; A9270-GY

== ENCOUNTER 2023-03-23 17:27 | Emergency (ER) | payer MEDICAID ==
[2023-03-23 18:43] LABS: BASOPHILS PERCENT AUTO 0.5 % (0.0-1.0); EOSINOPHILS ABSOLUTE AUTO 0.2 K/mm3 (0.0-0.4); EOSINOPHILS PERCENT AUTO 2.2 % (0.0-6.0); HEMATOCRIT 38.9 % (37.0-47.0); HEMOGLOBIN 13.2 gm/dl (12.0-16.0); IMMATURE GRAN ABSOLUTE AUTO 0.02 K/mm3 (0.00-0.05); IMMATURE GRAN PERCENT AUTO 0.2 % (0.0-0.4); LYMPHOCYTES ABSOLUTE AUTO 2.9 K/mm3 (1.0-4.8); LYMPHOCYTES PERCENT AUTO 35.2 % (24.0-44.0); MEAN CORPUSCULAR HGB CONC 33.9 g/dl (32.0-36.0); MEAN CORPUSCULAR VOLUME 88.4 fl (83.0-99.0); MEAN PLATELET VOLUME 9.3 fl (9.4-12.3); MONOCYTES ABSOLUTE AUTO 0.5 K/mm3 (0.0-0.8); MONOCYTES PERCENT AUTO 5.8 % (0.0-8.0); NEUTROPHILS ABSOLUTE AUTO 4.5 K/mm3 (1.8-7.7); NEUTROPHILS PERCENT AUTO 56.1 % (41.0-71.0); PLATELET COUNT,PLT 239 K/mm3 (150-400); WHITE BLOOD CELL COUNT,WBC 8.09 K/mm3 (3.9-11.3)
[2023-03-23 19:03] LABS: ALBUMIN 3.8 g/dl (3.4-5.0); ANION GAP 14.9 (5-15); BILIRUBIN TOTAL 0.3 mg/dL (0.2-1.0); BUN/CREATININE RATIO 17.1 (14-18); CREATININE 0.7 mg/dL (0.55-1.02); EST CRCL DRUG DOSING (CG) 118.54 mL/min; POTASSIUM,K 3.9 mEq/L (3.5-5.1); PROTEIN TOTAL,TP 7.5 g/dl (6.4-8.2)
[2023-03-23 19:16] LABS: APPEARANCE,URINE CLEAR (Clear); BILIRUBIN,URINE NEGATIVE (Negative); COLOR,URINE YELLOW (Yellow); GLUCOSE,URINE NEGATIVE (Negative); KETONES,URINE NEGATIVE (Negative); LEUKOCYTE ESTERASE,URINE NEGATIVE (Negative); NITRITE,URINE NEGATIVE (Negative); OCCULT BLOOD,URINE NEGATIVE (Negative); PH,URINE 5.5 (5.0-8.0); PROTEIN,URINE NEGATIVE (Negative)
[2023-03-23 19:19] LABS: CORONAVIRUS COVID-19 NAA NEGATIVE (NEGATIVE); INFLUENZA A NAA NEGATIVE (NEGATIVE); RESPIRATORY SYNCYTIAL VIR NAA NEGATIVE (NEGATIVE)
[2023-03-23 19:29] LABS: BACTERIA,URINE FEW /hpf (FEW); MUCUS,URINE MANY /hpf (FEW); RBC,URINE 0-5 /hpf (0-5); WBC,URINE 0-5 /hpf (0-5)
== END 2023-03-23 21:17 | disposition home or self-care (01) ==
LOC: JD.ED 17:27
DX: R10.30 Lower abdominal pain, unspecified (principal); E11.9 Type 2 diabetes mellitus without complications; E66.9 Obesity, unspecified; Z68.37 Body mass index [BMI] 37.0-37.9, adult; Z20.822 Contact with and (suspected) exposure to COVID-19; Z79.899 Other long term (current) drug therapy
CPT/HCPCS: 0241U; 36415; 74177; 80053; 81001; 84703; 85025; 86140; 99284

== ENCOUNTER 2023-08-18 06:30 | Day surgery (SDC) | payer MEDICAID ==
[2023-08-18] MEDS: Lactated Ringers 1,000 ML IV SCH (06:50)
[2023-08-18 06:54] LABS: APPEARANCE,URINE SLT CLOUDY (Clear); BILIRUBIN,URINE 1+ (Negative); COLOR,URINE DARK YELLOW (Yellow); GLUCOSE,URINE NEGATIVE (Negative); KETONES,URINE NEGATIVE (Negative); LEUKOCYTE ESTERASE,URINE NEGATIVE (Negative); NITRITE,URINE NEGATIVE (Negative); OCCULT BLOOD,URINE TRACE-INTACT (Negative); PH,URINE 5.5 (5.0-8.0); PROTEIN,URINE TRACE (Negative)
[2023-08-18] MEDS ORDERED: Sodium Chloride 0.9% 10 ML Syringe FLUSH PRN (07:11)
[2023-08-18] MEDS ORDERED: Succinylcholine 200 MG/10 ML MDV ONE (07:23)
[2023-08-18] MEDS ORDERED: Rocuronium 50 MG/5 ML Vial ONE (07:23)
[2023-08-18] MEDS ORDERED: Lidocaine 1% 6 ML ONE (07:23)
[2023-08-18] MEDS ORDERED: Midazolam 1 MG/ML 2 ML SDV ONE (07:23)
[2023-08-18] MEDS ORDERED: fentaNYL 250 MCG/5 ML SDV ONE (07:23)
[2023-08-18] MEDS ORDERED: Propofol 200 MG/20 ML SDV ONE (07:24)
[2023-08-18] MEDS ORDERED: Ketorolac 30 MG/ML SDV ONE (07:25)
[2023-08-18] MEDS ORDERED: Ondansetron 4 MG/2 ML SDV ONE (07:25)
[2023-08-18] MEDS ORDERED: Dexamethasone 4 MG/ML 5 ML MDV ONE (07:25)
[2023-08-18] MEDS ORDERED: Ketamine 200 MG/20 ML MDV ONE (07:27)
[2023-08-18] MEDS ORDERED: ceFAZolin 2 GM Vial ONE (08:33)
[2023-08-18] MEDS ORDERED: Lactated Ringers 1,000 ML ONE (08:52)
[2023-08-18] MEDS: EPINEPHrine 1 MG/ML SDV ONE (08:56)
[2023-08-18] MEDS: Bupivacaine 0.25% 10 ML SDV ONE (08:56)
[2023-08-18] MEDS: Bupivacaine 0.5% 30 ML SDV ONE (08:56)
[2023-08-18] MEDS ORDERED: Sodium Chloride 0.9% 10 ML Syringe FLUSH SCH (09:00)
[2023-08-18] MEDS ORDERED: HYDROmorphone 0.5 MG/0.5 ML Syringe IVPUSH PRN (09:29)
[2023-08-18] MEDS ORDERED: HYDROmorphone 0.5 MG/0.5 ML Syringe ONE (10:37)
[2023-08-18] MEDS ORDERED: dexmedeTOMIDine HCl 200 MCG/2 ML SDV ONE (10:44)
[2023-08-18] MEDS: fentaNYL 100 MCG/2 ML SDV IVPUSH PRN (11:38)
[2023-08-18] MEDS: Acetaminophen/oxyCODONE 325-5 MG Tab PO PRN (13:04)
== END 2023-08-18 15:15 | disposition home or self-care (01) ==
LOC: JD.SDS 06:30
PROVIDERS: ATTEND Obstetrics & Gynecology
DX: D25.1 Intramural leiomyoma of uterus (principal); N80.03 Adenomyosis of the uterus; N92.6 Irregular menstruation, unspecified; J30.9 Allergic rhinitis, unspecified; M19.90 Unspecified osteoarthritis, unspecified site; E05.90 Thyrotoxicosis, unspecified without thyrotoxic crisis or storm; E03.9 Hypothyroidism, unspecified; E11.9 Type 2 diabetes mellitus without complications; M62.830 Muscle spasm of back; G25.81 Restless legs syndrome; E66.9 Obesity, unspecified; F17.200 Nicotine dependence, unspecified, uncomplicated; Z68.37 Body mass index [BMI] 37.0-37.9, adult; Z79.899 Other long term (current) drug therapy
CPT/HCPCS: 36415; 58552; 81003; 81025; 82947; 86850; 86900; 86901; A9270; J0171; J0330; J0665; J0690; J1100; J1170; J1885; J2250; J2405; J2704; J3010; J3490; J7030; J7120; 00940

== ENCOUNTER 2023-08-21 14:33 | Emergency (ER) | payer MEDICAID | END 2023-08-21 15:42 | disposition left against medical advice (07) | LOC: JD.ED 14:33 | DX: Z53.21 Procedure and treatment not carried out due to patient leaving prior to being seen by health care provider (principal) ==

== ENCOUNTER 2023-09-03 17:38 | Emergency (ER) | payer MEDICAID ==
[2023-09-03] MEDS: Iopamidol 612 MG/ML 100 ML Bottle IVPUSH ONE (18:51)
[2023-09-03] MEDS ORDERED: Sodium Chloride 0.9% 10 ML Syringe FLUSH PRN (18:51)
[2023-09-03] MEDS: Sodium Chloride 0.9% 10 ML Syringe FLUSH PRN (18:52)
[2023-09-03 18:53] LABS: BASOPHILS PERCENT AUTO 0.5 % (0.0-1.0); EOSINOPHILS ABSOLUTE AUTO 0.2 K/mm3 (0.0-0.4); EOSINOPHILS PERCENT AUTO 1.9 % (0.0-6.0); HEMOGLOBIN 12.8 gm/dl (12.0-16.0); IMMATURE GRAN ABSOLUTE AUTO 0.02 K/mm3 (0.00-0.05); IMMATURE GRAN PERCENT AUTO 0.2 % (0.0-0.4); LYMPHOCYTES ABSOLUTE AUTO 2.9 K/mm3 (1.0-4.8); LYMPHOCYTES PERCENT AUTO 35.6 % (24.0-44.0); MEAN CORPUSCULAR HEMOGLOBIN 28.8 pg (28.0-32.0); MEAN CORPUSCULAR HGB CONC 32.8 g/dl (32.0-36.0); MEAN CORPUSCULAR VOLUME 87.8 fl (83.0-99.0); MEAN PLATELET VOLUME 9.5 fl (9.4-12.3); MONOCYTES ABSOLUTE AUTO 0.4 K/mm3 (0.0-0.8); NEUTROPHILS ABSOLUTE AUTO 4.7 K/mm3 (1.8-7.7); NEUTROPHILS PERCENT AUTO 56.8 % (41.0-71.0); PLATELET COUNT,PLT 290 K/mm3 (150-400); RED BLOOD CELL COUNT 4.44 M/mm3 (4.10-5.30); WHITE BLOOD CELL COUNT,WBC 8.25 K/mm3 (3.9-11.3)
[2023-09-03 19:07] LABS: ANION GAP 15.6 (5-15); BILIRUBIN TOTAL 0.4 mg/dL (0.2-1.0); BUN/CREATININE RATIO 13.3 (14-18); CALCIUM 9.1 mg/dL (8.5-10.1); CREATININE 0.9 mg/dL (0.55-1.02); EST CRCL DRUG DOSING (CG) 91.36 mL/min; MAGNESIUM 2.1 mg/dL (1.8-2.4); POTASSIUM,K 3.6 mEq/L (3.5-5.1); PROTEIN TOTAL,TP 7.9 g/dl (6.4-8.2)
[2023-09-03 19:13] LABS: APPEARANCE,URINE SLT CLOUDY (Clear); BILIRUBIN,URINE 1+ (Negative); COLOR,URINE YELLOW (Yellow); GLUCOSE,URINE NEGATIVE (Negative); KETONES,URINE 2+ (Negative); LEUKOCYTE ESTERASE,URINE 1+ (Negative); NITRITE,URINE NEGATIVE (Negative); OCCULT BLOOD,URINE 2+ (Negative); PROTEIN,URINE 1+ (Negative)
[2023-09-03 20:11] LABS: BACTERIA,URINE MODERATE /hpf (FEW); MUCUS,URINE MODERATE /hpf (FEW); WBC,URINE 20-30 /hpf (0-5)
[2023-09-03] MEDS: Cephalexin 500 MG Cap PO ONE (20:30)
== END 2023-09-03 20:36 | disposition home or self-care (01) ==
LOC: JD.ED 17:38
DX: N30.01 Acute cystitis with hematuria (principal); G89.18 Other acute postprocedural pain; R10.30 Lower abdominal pain, unspecified; E11.9 Type 2 diabetes mellitus without complications; E66.9 Obesity, unspecified; Z88.5 Allergy status to narcotic agent; Z91.048 Other nonmedicinal substance allergy status; Z79.899 Other long term (current) drug therapy; Z68.36 Body mass index [BMI] 36.0-36.9, adult
CPT/HCPCS: 36415; 74177; 80053; 81001; 83735; 85025; 99284; A9270; J3490; Q9967

== ENCOUNTER 2023-10-18 12:04 | Inpatient (IN) | payer MEDICAID ==
[2023-10-18 12:53] LABS: BASOPHILS PERCENT AUTO 0.3 % (0.0-1.0); EOSINOPHILS ABSOLUTE AUTO 0.1 K/mm3 (0.0-0.4); EOSINOPHILS PERCENT AUTO 0.6 % (0.0-6.0); HEMATOCRIT 41.7 % (37.0-47.0); HEMOGLOBIN 13.9 gm/dl (12.0-16.0); IMMATURE GRAN ABSOLUTE AUTO 0.04 K/mm3 (0.00-0.05); IMMATURE GRAN PERCENT AUTO 0.3 % (0.0-0.4); LYMPHOCYTES ABSOLUTE AUTO 1.1 K/mm3 (1.0-4.8); LYMPHOCYTES PERCENT AUTO 8.9 % (24.0-44.0); MEAN CORPUSCULAR HEMOGLOBIN 28.5 pg (28.0-32.0); MEAN CORPUSCULAR HGB CONC 33.3 g/dl (32.0-36.0); MEAN CORPUSCULAR VOLUME 85.6 fl (83.0-99.0); MEAN PLATELET VOLUME 9.7 fl (9.4-12.3); MONOCYTES ABSOLUTE AUTO 0.5 K/mm3 (0.0-0.8); MONOCYTES PERCENT AUTO 4.4 % (0.0-8.0); NEUTROPHILS ABSOLUTE AUTO 10.3 K/mm3 (1.8-7.7); NEUTROPHILS PERCENT AUTO 85.5 % (41.0-71.0); PLATELET COUNT,PLT 243 K/mm3 (150-400); RED BLOOD CELL COUNT 4.87 M/mm3 (4.10-5.30); WHITE BLOOD CELL COUNT,WBC 12.02 K/mm3 (3.9-11.3)
[2023-10-18] MEDS: Iopamidol 755 Mg/ML 100 ML Bottle IVPUSH ONE (13:11)
[2023-10-18] MEDS: Sodium Chloride 0.9% 100 ML IV SCH (13:11)
[2023-10-18 13:19] LABS: A/G RATIO 1.1 (1-2); ALBUMIN 4.1 g/dl (3.4-5.0); ANION GAP 15.5 (5-15); BILIRUBIN TOTAL 0.6 mg/dL (0.2-1.0); CALCIUM 9.1 mg/dL (8.5-10.1); EST CRCL DRUG DOSING (CG) 82.23 mL/min; POTASSIUM,K 3.5 mEq/L (3.5-5.1); PROTEIN TOTAL,TP 7.7 g/dl (6.4-8.2)
[2023-10-18 13:22] LABS: C-REACTIVE PROTEIN 1.42 mg/dL (<0.30)
[2023-10-18 13:34] LABS: LACTIC ACID 1.4 mmol/L (0.4-2.0)
[2023-10-18] MEDS: Metoclopramide 10 MG/2 ML SDV IVPUSH ONE (13:35)
[2023-10-18] MEDS: diphenhydrAMINE 50 MG/ML SDV IVPUSH ONE (13:36)
[2023-10-18] MEDS: Ketorolac 30 MG/ML SDV IVPUSH ONE (13:36)
[2023-10-18] MEDS: Lactated Ringers 1,000 ML IV ONE (13:36)
[2023-10-18 13:58] LABS: APPEARANCE,URINE CLEAR (Clear); BILIRUBIN,URINE NEGATIVE (Negative); COLOR,URINE DARK YELLOW (Yellow); GLUCOSE,URINE NEGATIVE (Negative); KETONES,URINE NEGATIVE (Negative); LEUKOCYTE ESTERASE,URINE NEGATIVE (Negative); NITRITE,URINE NEGATIVE (Negative); OCCULT BLOOD,URINE NEGATIVE (Negative); PH,URINE 5.5 (5.0-8.0); PROTEIN,URINE 1+ (Negative); UROBILINOGEN,URINE 0.2 (0.2-1.0)
[2023-10-18 14:20] LABS: BACTERIA,URINE MODERATE /hpf (FEW); MUCUS,URINE MANY /hpf (FEW); RBC,URINE 0-5 /hpf (0-5); WBC,URINE 0-5 /hpf (0-5)
[2023-10-18] MEDS ORDERED: Ondansetron 4 MG/2 ML SDV IV PRN (15:14)
[2023-10-18] MEDS ORDERED: Zolpidem 5 MG Tab PO PRN (15:14)
[2023-10-18] MEDS: Heparin Sodium 5,000 Units/ML Vial SUBCUT SCH (16:15)
[2023-10-18] MEDS: Sodium Chloride 0.9% 1,000 ML IV SCH (16:47)
[2023-10-18] MEDS: HYDROmorphone 0.5 MG/0.5 ML Syringe IVPUSH PRN (16:47)
[2023-10-18] MEDS: Acetaminophen 325 MG Tab PO PRN (20:37)
[2023-10-18] MEDS: oxyCODONE 5 MG Tab PO PRN (22:55)
[2023-10-19 06:16] LABS: BASOPHILS PERCENT AUTO 0.4 % (0.0-1.0); EOSINOPHILS PERCENT AUTO 0.5 % (0.0-6.0); HEMATOCRIT 32.9 % (37.0-47.0); IMMATURE GRAN ABSOLUTE AUTO 0.02 K/mm3 (0.00-0.05); IMMATURE GRAN PERCENT AUTO 0.3 % (0.0-0.4); LYMPHOCYTES ABSOLUTE AUTO 2.1 K/mm3 (1.0-4.8); LYMPHOCYTES PERCENT AUTO 29.1 % (24.0-44.0); MEAN CORPUSCULAR HEMOGLOBIN 28.3 pg (28.0-32.0); MEAN CORPUSCULAR HGB CONC 32.8 g/dl (32.0-36.0); MEAN CORPUSCULAR VOLUME 86.1 fl (83.0-99.0); MEAN PLATELET VOLUME 9.9 fl (9.4-12.3); MONOCYTES ABSOLUTE AUTO 0.5 K/mm3 (0.0-0.8); MONOCYTES PERCENT AUTO 7.2 % (0.0-8.0); NEUTROPHILS ABSOLUTE AUTO 4.6 K/mm3 (1.8-7.7); NEUTROPHILS PERCENT AUTO 62.5 % (41.0-71.0); PLATELET COUNT,PLT 186 K/mm3 (150-400); RED BLOOD CELL COUNT 3.82 M/mm3 (4.10-5.30); WHITE BLOOD CELL COUNT,WBC 7.32 K/mm3 (3.9-11.3)
[2023-10-19 06:30] LABS: HEMOGLOBIN 10.8 gm/dl (12.0-16.0)
[2023-10-19 06:36] LABS: ALBUMIN 2.9 g/dl (3.4-5.0); BILIRUBIN TOTAL 0.7 mg/dL (0.2-1.0); BUN/CREATININE RATIO 12.5 (14-18); CALCIUM 7.9 mg/dL (8.5-10.1); CREATININE 0.8 mg/dL (0.55-1.02); EST CRCL DRUG DOSING (CG) 102.78 mL/min; PROTEIN TOTAL,TP 5.8 g/dl (6.4-8.2)
[2023-10-19] MEDS: Potassium Chloride 10 MEQ in Premix Bag 1 BAG IV SCH (08:01)
[2023-10-19] MEDS ORDERED: ALPRAZolam 1 MG Tab PO PRN ×2 (09:24→09:45)
[2023-10-19] MEDS ORDERED: Venlafaxine 37.5 MG Tab PO SCH (09:30)
[2023-10-19] MEDS: D5 1/2 NS w/ 20 mEq/L KCl 1,000 ML IV SCH (10:13)
[2023-10-19] MEDS: cefTRIAXone 2 GM in Sodium Chloride 0.9% 100 ML IV SCH (11:58)
[2023-10-19] MEDS: metroNIDAZOLE/Normal Saline 500 MG in Premix Bag 1 BAG IV SCH (12:26)
[2023-10-19] MEDS: Magnesium Sulfate/Water 4 GM in Premix Bag 1 BAG IV ONE (12:28)
[2023-10-20 05:09] LABS: HEMATOCRIT 32.8 % (37.0-47.0); HEMOGLOBIN 10.5 gm/dl (12.0-16.0); MEAN CORPUSCULAR HEMOGLOBIN 27.6 pg (28.0-32.0); MEAN CORPUSCULAR VOLUME 86.3 fl (83.0-99.0); MEAN PLATELET VOLUME 10.1 fl (9.4-12.3); PLATELET COUNT,PLT 182 K/mm3 (150-400); WHITE BLOOD CELL COUNT,WBC 6.89 K/mm3 (3.9-11.3)
[2023-10-20 05:38] LABS: A/G RATIO 0.9 (1-2); ALBUMIN 2.8 g/dl (3.4-5.0); ANION GAP 12.9 (5-15); BILIRUBIN TOTAL 0.4 mg/dL (0.2-1.0); C-REACTIVE PROTEIN 14.88 mg/dL (<0.30); CALCIUM 8.1 mg/dL (8.5-10.1); CREATININE 0.8 mg/dL (0.55-1.02); EST CRCL DRUG DOSING (CG) 102.78 mL/min; MAGNESIUM 2.3 mg/dL (1.8-2.4); POTASSIUM,K 3.9 mEq/L (3.5-5.1); PROTEIN TOTAL,TP 6.1 g/dl (6.4-8.2)
[2023-10-20] MEDS: Levothyroxine 112 MCG Tab PO SCH (06:27)
[2023-10-20] MEDS: Levothyroxine 25 MCG Tab PO SCH (06:28)
[2023-10-20] MEDS ORDERED: Levothyroxine 25 MCG Tab PO SCH (07:00)
[2023-10-20] MEDS ORDERED: Levothyroxine 112 MCG Tab PO SCH (07:00)
[2023-10-20] MEDS: Venlafaxine 37.5 MG Tab PO SCH (08:00)
[2023-10-20] MEDS: Enoxaparin 40 MG/0.4 ML Syringe SUBCUT SCH (08:00)
[2023-10-20] MEDS: Ondansetron 4 MG Tab.DIS PO PRN (08:57)
[2023-10-21 05:38] LABS: A/G RATIO 0.9 (1-2); ANION GAP 12.8 (5-15); BILIRUBIN TOTAL 0.3 mg/dL (0.2-1.0); BUN/CREATININE RATIO 6.3 (14-18); C-REACTIVE PROTEIN 8.62 mg/dL (<0.30); CALCIUM 8.4 mg/dL (8.5-10.1); CREATININE 0.8 mg/dL (0.55-1.02); EST CRCL DRUG DOSING (CG) 102.78 mL/min; POTASSIUM,K 3.8 mEq/L (3.5-5.1); PROTEIN TOTAL,TP 6.3 g/dl (6.4-8.2)
[2023-10-21 05:57] LABS: HEMOGLOBIN 11.1 gm/dl (12.0-16.0); MEAN CORPUSCULAR HEMOGLOBIN 28.1 pg (28.0-32.0); MEAN CORPUSCULAR HGB CONC 32.6 g/dl (32.0-36.0); MEAN CORPUSCULAR VOLUME 86.1 fl (83.0-99.0); MEAN PLATELET VOLUME 10.3 fl (9.4-12.3); PLATELET COUNT,PLT 206 K/mm3 (150-400); RED BLOOD CELL COUNT 3.95 M/mm3 (4.10-5.30); WHITE BLOOD CELL COUNT,WBC 5.47 K/mm3 (3.9-11.3)
[2023-10-21] MEDS ORDERED: Cefdinir 300 MG Cap PO ONE (11:00)
== END 2023-10-21 11:40 | disposition home or self-care (01) | DRG 392 ==
LOC: JD.ED 12:04 → JD.MS 15:14
PROVIDERS: ADMIT Internal Medicine; ATTEND Internal Medicine
DX: K52.9 Noninfective gastroenteritis and colitis, unspecified (principal); K56.7 Ileus, unspecified; J45.909 Unspecified asthma, uncomplicated; G43.909 Migraine, unspecified, not intractable, without status migrainosus; F41.9 Anxiety disorder, unspecified; F31.9 Bipolar disorder, unspecified; Z88.8 Allergy status to other drugs, medicaments and biological substances; Z68.35 Body mass index [BMI] 35.0-35.9, adult; E11.9 Type 2 diabetes mellitus without complications; E66.9 Obesity, unspecified; K59.00 Constipation, unspecified; F17.210 Nicotine dependence, cigarettes, uncomplicated; E86.0 Dehydration; E87.6 Hypokalemia; E03.9 Hypothyroidism, unspecified; D72.829 Elevated white blood cell count, unspecified; Z88.5 Allergy status to narcotic agent; Z91.048 Other nonmedicinal substance allergy status; Z79.899 Other long term (current) drug therapy; Z87.440 Personal history of urinary (tract) infections; Z68.36 Body mass index [BMI] 36.0-36.9, adult; Z90.89 Acquired absence of other organs; Z98.84 Bariatric surgery status; Z90.710 Acquired absence of both cervix and uterus; Z98.51 Tubal ligation status
CPT/HCPCS: 36415; 74177; 76830; 80053; 81001; 83605; 83690; 85025; 86140; 96361; 96374; 96375; 99285; J1200; J1885; J2765; J3490; J7120; Q9967; 82947; 83735; 85027; 99284; A9270-GY; J0696; J1170; J1644; J1650; J1836; J3475; J3480; J7030

== ENCOUNTER 2023-11-22 16:45 | Emergency (ER) | payer MEDICAID ==
[2023-11-22 17:43] LABS: APPEARANCE,URINE CLEAR (Clear); BILIRUBIN,URINE 1+ (Negative); COLOR,URINE YELLOW (Yellow); GLUCOSE,URINE NEGATIVE (Negative); KETONES,URINE 1+ (Negative); LEUKOCYTE ESTERASE,URINE NEGATIVE (Negative); NITRITE,URINE NEGATIVE (Negative); OCCULT BLOOD,URINE TRACE-INTACT (Negative); PROTEIN,URINE 1+ (Negative)
[2023-11-22 17:52] LABS: BASOPHILS PERCENT AUTO 0.2 % (0.0-1.0); EOSINOPHILS PERCENT AUTO 0.3 % (0.0-6.0); HEMATOCRIT 41.4 % (37.0-47.0); HEMOGLOBIN 13.6 gm/dl (12.0-16.0); IMMATURE GRAN ABSOLUTE AUTO 0.04 K/mm3 (0.00-0.05); IMMATURE GRAN PERCENT AUTO 0.4 % (0.0-0.4); LYMPHOCYTES ABSOLUTE AUTO 1.7 K/mm3 (1.0-4.8); LYMPHOCYTES PERCENT AUTO 16.9 % (24.0-44.0); MEAN CORPUSCULAR HEMOGLOBIN 28.3 pg (28.0-32.0); MEAN CORPUSCULAR HGB CONC 32.9 g/dl (32.0-36.0); MEAN CORPUSCULAR VOLUME 86.3 fl (83.0-99.0); MEAN PLATELET VOLUME 9.9 fl (9.4-12.3); MONOCYTES ABSOLUTE AUTO 0.5 K/mm3 (0.0-0.8); MONOCYTES PERCENT AUTO 4.9 % (0.0-8.0); NEUTROPHILS ABSOLUTE AUTO 7.8 K/mm3 (1.8-7.7); NEUTROPHILS PERCENT AUTO 77.3 % (41.0-71.0); PLATELET COUNT,PLT 242 K/mm3 (150-400); WHITE BLOOD CELL COUNT,WBC 10.06 K/mm3 (3.9-11.3)
[2023-11-22 17:56] LABS: BACTERIA,URINE MODERATE /hpf (FEW); MUCUS,URINE MANY /hpf (FEW)
[2023-11-22 18:15] LABS: LACTIC ACID 0.6 mmol/L (0.4-2.0)
[2023-11-22] MEDS: HYDROmorphone 0.5 MG/0.5 ML Syringe IVPUSH ONE (18:25)
[2023-11-22] MEDS: Iopamidol 612 MG/ML 100 ML Bottle IVPUSH ONE (18:44)
[2023-11-22] MEDS: Lactated Ringers 1,000 ML IV ONE (18:46)
[2023-11-22] MEDS: Metoclopramide 10 MG/2 ML SDV IVPUSH ONE (18:47)
[2023-11-22 20:41] LABS: ALBUMIN 3.7 g/dl (3.4-5.0); ALKALINE PHOSPHATASE 46 U/L (46-116); ANION GAP 14.5 (5-15); ASPARTATE AMNIOTRANSFERASE,AST 6 U/L (15-37); BILIRUBIN TOTAL 0.6 mg/dL (0.2-1.0); BLOOD UREA NITROGEN,BUN 9 mg/dL (7-18); CALCIUM 8.9 mg/dL (8.5-10.1); CARBON DIOXIDE,CO2 25 mEq/L (21-32); CHLORIDE,CL 106 mEq/L (98-107); EST CRCL DRUG DOSING (CG) 82.23 mL/min; ESTIMATED GFR 77 mL/min (>60); GLUCOSE RANDOM 111 mg/dL (70-99); HCG QUANTITATIVE < 1.0 mIU/mL; LIPASE 27 U/L (16-77); POTASSIUM,K 3.5 mEq/L (3.5-5.1); PROTEIN TOTAL,TP 7.4 g/dl (6.4-8.2); SODIUM,NA 142 mEq/L (136-145)
[2023-11-22 20:50] LABS: ALANINE AMINOTRANSFERASE,ALT 17 U/L (14-59)
[2023-11-22] MEDS ORDERED: Piperacillin/Tazobactam 4.5 GM Vial ONE (21:42)
[2023-11-22] MEDS: Piperacillin/Tazobactam 4.5 GM in Sodium Chloride 0.9% 100 ML IV ONE (21:52)
[2023-11-22] MEDS: Acetaminophen/HYDROcodone 325-5 MG Tab PO ONE (21:54)
== END 2023-11-22 23:01 | disposition home or self-care (01) ==
LOC: JD.ED 16:45
DX: K65.9 Peritonitis, unspecified (principal); K52.9 Noninfective gastroenteritis and colitis, unspecified; R18.8 Other ascites; J45.909 Unspecified asthma, uncomplicated; E11.9 Type 2 diabetes mellitus without complications; E05.90 Thyrotoxicosis, unspecified without thyrotoxic crisis or storm; Z88.5 Allergy status to narcotic agent; Z88.8 Allergy status to other drugs, medicaments and biological substances; Z79.899 Other long term (current) drug therapy; Z79.890 Hormone replacement therapy; Z90.710 Acquired absence of both cervix and uterus
CPT/HCPCS: 36415; 74177; 80053; 81001; 83605; 83690; 84702; 85025; 86140; 96361; 96365; 96375; 99284; A9270; J1170; J2543; J2765; J3490; J7120; Q9967

== ENCOUNTER 2023-12-08 09:32 | Day surgery (SDC) | payer MEDICAID ==
[~2023-12-08 09:32] MED LIST: Sodium Chloride 0.9% 10 ML Syringe FLUSH PRN; Sodium Chloride 0.9% 10 ML Syringe FLUSH SCH
[2023-12-08] MEDS: Lactated Ringers 1,000 ML IV SCH (09:45)
[2023-12-08] MEDS ORDERED: Rocuronium 50 MG/5 ML Vial ONE (09:45)
[2023-12-08] MEDS ORDERED: Midazolam 1 MG/ML 2 ML SDV ONE (09:45)
[2023-12-08] MEDS ORDERED: fentaNYL 100 MCG/2 ML SDV ONE (09:45)
[2023-12-08] MEDS ORDERED: Propofol 200 MG/20 ML SDV ONE (09:45)
[2023-12-08] MEDS ORDERED: Lidocaine 2% 5 ML SDV ONE (09:47)
[2023-12-08] MEDS ORDERED: Ondansetron 4 MG/2 ML SDV ONE (10:24)
[2023-12-08] MEDS ORDERED: Ketorolac 30 MG/ML SDV ONE (10:24)
[2023-12-08] MEDS ORDERED: Neostigmine Methylsulfate 10 MG/10 ML MDV ONE (10:32)
[2023-12-08] MEDS ORDERED: HYDROmorphone 0.5 MG/0.5 ML Syringe IVPUSH PRN (12:01)
[2023-12-08] MEDS ORDERED: Ondansetron 4 MG/2 ML SDV IVPUSH PRN (12:01)
[2023-12-08] MEDS: fentaNYL 100 MCG/2 ML SDV IVPUSH PRN (12:15)
[2023-12-08] MEDS: EPINEPHrine 1 MG/ML SDV ONE (12:21)
[2023-12-08] MEDS: Bupivacaine 0.5% 30 ML SDV ONE (12:21)
== END 2023-12-08 14:20 | disposition home or self-care (01) ==
LOC: JD.SDS 09:32
PROVIDERS: ATTEND Surgery
DX: K52.9 Noninfective gastroenteritis and colitis, unspecified (principal); J45.909 Unspecified asthma, uncomplicated; E11.9 Type 2 diabetes mellitus without complications; F31.9 Bipolar disorder, unspecified; E66.9 Obesity, unspecified; Z68.34 Body mass index [BMI] 34.0-34.9, adult; F17.210 Nicotine dependence, cigarettes, uncomplicated; Z79.890 Hormone replacement therapy; Z79.85 Long-term (current) use of injectable non-insulin antidiabetic drugs; Z79.899 Other long term (current) drug therapy
CPT/HCPCS: 49320; J0171; J0665; J1885; J2250; J2405; J2704; J2710; J3010; J3490; J7120

== ENCOUNTER 2024-03-20 14:13 | Emergency (ER) | payer MEDICAID ==
[2024-03-20] MEDS: HYDROmorphone 0.5 MG/0.5 ML Syringe IVPUSH ONE ×2 (16:23→18:02)
[2024-03-20] MEDS: Ondansetron 4 MG/2 ML SDV IVPUSH ONE (16:23)
[2024-03-20 16:32] LABS: APPEARANCE,URINE CLEAR (Clear); BILIRUBIN,URINE 1+ (Negative); COLOR,URINE YELLOW (Yellow); GLUCOSE,URINE NEGATIVE (Negative); KETONES,URINE TRACE (Negative); LEUKOCYTE ESTERASE,URINE NEGATIVE (Negative); NITRITE,URINE NEGATIVE (Negative); OCCULT BLOOD,URINE NEGATIVE (Negative); PH,URINE 6.5 (5.0-8.0); PROTEIN,URINE 1+ (Negative)
[2024-03-20] MEDS: Sodium Chloride 0.9% 1,000 ML IV SCH (16:32)
[2024-03-20 16:46] LABS: A/G RATIO 1.1 (1-2); ALBUMIN 3.8 g/dl (3.4-5.0); ANION GAP 13.4 (5-15); BILIRUBIN TOTAL 0.6 mg/dL (0.2-1.0); BUN/CREATININE RATIO 8.8 (14-18); CREATININE 0.8 mg/dL (0.55-1.02); EST CRCL DRUG DOSING (CG) 102.78 mL/min; POTASSIUM,K 3.4 mEq/L (3.5-5.1); PROTEIN TOTAL,TP 7.4 g/dl (6.4-8.2)
[2024-03-20 16:53] LABS: BASOPHILS PERCENT AUTO 0.3 % (0.0-1.0); EOSINOPHILS ABSOLUTE AUTO 0.1 K/mm3 (0.0-0.4); EOSINOPHILS PERCENT AUTO 1.2 % (0.0-6.0); HEMATOCRIT 41.5 % (37.0-47.0); IMMATURE GRAN ABSOLUTE AUTO 0.03 K/mm3 (0.00-0.05); IMMATURE GRAN PERCENT AUTO 0.3 % (0.0-0.4); LYMPHOCYTES ABSOLUTE AUTO 1.9 K/mm3 (1.0-4.8); LYMPHOCYTES PERCENT AUTO 21.7 % (24.0-44.0); MEAN CORPUSCULAR HEMOGLOBIN 28.8 pg (28.0-32.0); MEAN CORPUSCULAR VOLUME 87.4 fl (83.0-99.0); MEAN PLATELET VOLUME 10.2 fl (9.4-12.3); MONOCYTES ABSOLUTE AUTO 0.4 K/mm3 (0.0-0.8); MONOCYTES PERCENT AUTO 4.6 % (0.0-8.0); NEUTROPHILS ABSOLUTE AUTO 6.2 K/mm3 (1.8-7.7); NEUTROPHILS PERCENT AUTO 71.9 % (41.0-71.0); PLATELET COUNT,PLT 232 K/mm3 (150-400); RED BLOOD CELL COUNT 4.75 M/mm3 (4.10-5.30); WHITE BLOOD CELL COUNT,WBC 8.65 K/mm3 (3.9-11.3)
[2024-03-20 16:56] LABS: HEMOGLOBIN 13.7 gm/dl (12.0-16.0)
[2024-03-20 18:22] LABS: BACTERIA,URINE FEW /hpf (FEW); MUCUS,URINE MANY /hpf (FEW); RBC,URINE 0-5 /hpf (0-5); WBC,URINE 0-5 /hpf (0-5)
[2024-03-20] MEDS: Fluconazole 150 MG Tab PO ONE (19:51)
== END 2024-03-20 20:18 | disposition home or self-care (01) ==
LOC: JD.ED 14:13
DX: R10.30 Lower abdominal pain, unspecified (principal); J45.909 Unspecified asthma, uncomplicated; E11.9 Type 2 diabetes mellitus without complications; E03.9 Hypothyroidism, unspecified; E66.9 Obesity, unspecified; Z68.32 Body mass index [BMI] 32.0-32.9, adult; Z90.710 Acquired absence of both cervix and uterus; Z79.899 Other long term (current) drug therapy; Z88.5 Allergy status to narcotic agent; Z91.048 Other nonmedicinal substance allergy status
CPT/HCPCS: 36415; 74177; 80053; 81001; 83690; 85025; 86140; 96361; 96374; 96375; 96376; 99284; A9270; J1171; J2405; J7030

== ENCOUNTER 2024-07-26 17:59 | Emergency (ER) | payer MEDICAID ==
[2024-07-26 18:43] LABS: APPEARANCE,URINE CLEAR (Clear); BILIRUBIN,URINE NEGATIVE (Negative); COLOR,URINE YELLOW (Yellow); GLUCOSE,URINE NEGATIVE (Negative); KETONES,URINE 1+ (Negative); LEUKOCYTE ESTERASE,URINE NEGATIVE (Negative); NITRITE,URINE NEGATIVE (Negative); OCCULT BLOOD,URINE NEGATIVE (Negative); PH,URINE 5.5 (5.0-8.0); PROTEIN,URINE 1+ (Negative); UROBILINOGEN,URINE 0.2 (0.2-1.0)
[2024-07-26] MEDS: Sodium Chloride 0.9% 1,000 ML IV ONE (18:46)
[2024-07-26] MEDS: Metoclopramide 10 MG/2 ML SDV IVPUSH ONE (18:48)
[2024-07-26 18:56] LABS: BASOPHILS PERCENT AUTO 0.4 % (0.0-1.0); EOSINOPHILS PERCENT AUTO 0.2 % (0.0-6.0); HEMATOCRIT 39.8 % (37.0-47.0); HEMOGLOBIN 13.1 gm/dl (12.0-16.0); IMMATURE GRAN ABSOLUTE AUTO 0.02 K/mm3 (0.00-0.05); IMMATURE GRAN PERCENT AUTO 0.2 % (0.0-0.4); LYMPHOCYTES ABSOLUTE AUTO 2.5 K/mm3 (1.0-4.8); LYMPHOCYTES PERCENT AUTO 26.7 % (24.0-44.0); MEAN CORPUSCULAR HEMOGLOBIN 29.2 pg (28.0-32.0); MEAN CORPUSCULAR HGB CONC 32.9 g/dl (32.0-36.0); MEAN CORPUSCULAR VOLUME 88.6 fl (83.0-99.0); MEAN PLATELET VOLUME 9.8 fl (9.4-12.3); MONOCYTES ABSOLUTE AUTO 0.4 K/mm3 (0.0-0.8); NEUTROPHILS ABSOLUTE AUTO 6.4 K/mm3 (1.8-7.7); NEUTROPHILS PERCENT AUTO 68.5 % (41.0-71.0); PLATELET COUNT,PLT 260 K/mm3 (150-400); RED BLOOD CELL COUNT 4.49 M/mm3 (4.10-5.30); WHITE BLOOD CELL COUNT,WBC 9.28 K/mm3 (3.9-11.3)
[2024-07-26 18:57] LABS: BACTERIA,URINE FEW /hpf (FEW); MUCUS,URINE MANY /hpf (FEW); RBC,URINE 0-5 /hpf (0-5); WBC,URINE 0-5 /hpf (0-5)
[2024-07-26 19:26] LABS: A/G RATIO 1.1 (1-2); ALBUMIN 4.1 g/dl (3.4-5.0); ANION GAP 14.5 (5-15); BILIRUBIN TOTAL 0.4 mg/dL (0.2-1.0); BUN/CREATININE RATIO 11.1 (14-18); C-REACTIVE PROTEIN 0.74 mg/dL (<0.30); CALCIUM 8.9 mg/dL (8.5-10.1); CREATININE 0.9 mg/dL (0.55-1.02); EST CRCL DRUG DOSING (CG) 90.53 mL/min; POTASSIUM,K 3.5 mEq/L (3.5-5.1); PROTEIN TOTAL,TP 7.7 g/dl (6.4-8.2)
[2024-07-26] MEDS ORDERED: Naloxone 0.4 MG/ML SDV IVPUSH PRN (19:28)
[2024-07-26] MEDS: fentaNYL 100 MCG/2 ML SDV IVPUSH ONE (21:33)
== END 2024-07-26 19:39 | disposition left against medical advice (07) ==
LOC: JD.ED 17:59
DX: R10.31 Right lower quadrant pain (principal); R10.32 Left lower quadrant pain; R11.2 Nausea with vomiting, unspecified; J45.909 Unspecified asthma, uncomplicated; E11.9 Type 2 diabetes mellitus without complications; E66.9 Obesity, unspecified; Z68.33 Body mass index [BMI] 33.0-33.9, adult; Z98.84 Bariatric surgery status; Z90.710 Acquired absence of both cervix and uterus; Z87.891 Personal history of nicotine dependence; Z88.5 Allergy status to narcotic agent; Z88.8 Allergy status to other drugs, medicaments and biological substances; Z79.51 Long term (current) use of inhaled steroids; Z79.890 Hormone replacement therapy; Z79.899 Other long term (current) drug therapy
CPT/HCPCS: 36415; 80053; 81001; 81025; 83690; 85025; 86140; 96361; 96374; 99284; J2765; J7030; 99283